=== PATIENT | female | born 1970 | race Caucasian/White ===

== ENCOUNTER → 2016-12-28 | Outpatient (CLI) | payer OTHER ==
[2016-12-28 10:11] LABS: Basophils # (A) 0.1 k/uL (0-0.2); Basophils % (A) 2 %; CH 29.5; Eosinophils # (A) 0.4 k/uL (0-0.7); Eosinophils % (A) 4 %; HCT 44.2 % (34.0-46.0); HGB 13.9 gm/dL (11.4-16.0); Luc % (Auto) 3; Lymphocytes # (A) 1.9 k/uL (1.0-4.8); Lymphocytes % (A) 21 %; MCH 29.1 pg (25.0-35.0); MCHC 31.5 g/dL (31.0-37.0); MCV 92.4 fL (80.0-100.0); Mean Platelet Volume 8.2; Monocytes # (A) 0.5 k/uL (0-1.0); Monocytes % (A) 5 %; Neutrophils # (A) 6.1 k/uL (1.3-7.7); Neutrophils % (A) 65 %; RBC 4.78 m/uL (3.80-5.40); RDW 13.9 % (11.5-15.5); WBC 9.4 k/uL (3.8-10.6); WBC (Perox) 9.69
[2016-12-28 10:24] LABS: ALT 25 U/L (9-52); AST 21 U/L (14-36); Alkaline Phosphatase 65 U/L (38-126); Anion Gap 14 mmol/L; Blood Urea Nitrogen 21 mg/dL (7-17); Calcium 9.2 mg/dL (8.4-10.2); Carbon Dioxide 21 mmol/L (22-30); Chloride 105 mmol/L (98-107); Cholesterol 209 mg/dL (<200); Glucose 115 mg/dL (74-99); HDL Cholesterol 56 mg/dL (40-60); Non-African American GFR(MDRD) >60 (>60 ml/min/1.73 sqM); Potassium 4.9 mmol/L (3.5-5.1); Sodium 140 mmol/L (137-145); Total Bilirubin 0.7 mg/dL (0.2-1.3); Triglycerides 179 mg/dL (<150)
[2016-12-28 13:38] LABS: Hemoglobin A1C 6.9 % (4.2-6.1)
== END ==
LOC: LABWHC1 08:57
PROVIDERS: ATTEND Family Medicine
DX: E11.9 Type 2 diabetes mellitus without complications (principal)
CPT/HCPCS: 36415; 80053; 80061; 83036; 85025

== ENCOUNTER → 2017-01-03 | Outpatient (CLI) | payer OTHER ==
--- NOTE | 2017-01-03 10:03 | CT ---
EXAMINATION TYPE: CT abdomen pelvis wo con DATE OF EXAM: 01/03/2017 8:57 AM HISTORY: Kidney Stone per order. History of right-sided lithotripsy per patient. CT DLP: 4267.40 mGycm. Automated Exposure Control for Dose Reduction was Utilized. TECHNIQUE: CT scan of the abdomen and pelvis is performed without oral or IV contrast. COMPARISON: CT abdomen pelvis May 30, 2015 FINDINGS: Within the limitations of a non-contrast study, the following observations are made. LUNG BASES: No significant abnormality is appreciated. LIVER/GB: Liver remains heterogeneously hypodense consistent with diffuse fatty infiltration. Cholecy stectomy clips are redemonstrated. PANCREAS: No significant abnormality is seen. SPLEEN: No significant abnormality is seen. ADRENALS: No significant abnormality is seen. KIDNEYS: No definite left-sided nephrolithiasis. There is single 3 mm calculus in right kidney on axi al image 44 identified on current study. There are additional punctate 1 mm foci suspicious for 1 to 3 additional tiny calculi scattered throughout the right kidney. Calcific burden is improved from josafat or exam. No hydronephrosis is clearly seen bilaterally. Punctate 1 to 2 mm densities in the right pelvis on axial image 84 and 87 are stable, favor phlebolit hs given interval stability though they are along the course of the distal right ureter so nonobstruc ting calculi are not entirely excluded. There is right-sided upper pelvic phlebolith on axial image 7 2 redemonstrated felt stable. There are additional left-sided pelvic phleboliths noted. No intralumin al calculi in the bladder are seen. BOWEL: There are some scattered diverticula throughout the colon most pronounced at sigmoid colon lev el. No acute diverticulitis is evident. There is no suspicious small or large bowel dilatation presen t. GENITAL ORGANS: Uterus is surgically absent or markedly atrophic in appearance. Remnant left ovary on axial image 80 is not suspiciously enlarged. Remnant right ovary is likely present near axial image 82 along course of distal right ovarian vein. LYMPH NODES: No greater than 1cm abdominal or pelvic lymph nodes are appreciated. OSSEOUS STRUCTURES: Multilevel facet arthropathy lower lumbar spine is redemonstrated. OTHER: There is stable moderate size fat umbilical hernia. IMPRESSION: 1. Interval improvement in right renal calcific burden. No hydronephrosis is evident currently. There are 2 punctate densities in the right pelvis measuring 1 to 2 mm in size that are stable from prior exam favoring pelvic phleboliths, small residual distal ureter calculi are not entirely excluded as t hey appear to be along the course of the distal right ureter. Note is made there was retrograde urogr am performed June 09, 2015, would correlate with this procedure note as there is no significant int erval change in appearance suggesting they are more likely phleboliths.
== END | disposition home or self-care (01) ==
LOC: RADCTMAIN 07:34
PROVIDERS: ATTEND Family Medicine
DX: N28.89 Other specified disorders of kidney and ureter (principal)
CPT/HCPCS: 74176

== ENCOUNTER → 2017-11-24 | Outpatient (CLI) | payer MEDICAID, OTHER ==
[2017-11-24 08:00] LABS: Basophils # (A) 0.1 k/uL (0-0.2); Basophils % (A) 1 %; Eosinophils # (A) 0.3 k/uL (0-0.7); Eosinophils % (A) 4 %; HCT 42.5 % (34.0-46.0); HGB 13.4 gm/dL (11.4-16.0); Lymphocytes # (A) 2.3 k/uL (1.0-4.8); Lymphocytes % (A) 24 %; MCH 28.6 pg (25.0-35.0); MCHC 31.6 g/dL (31.0-37.0); MCV 90.5 fL (80.0-100.0); Mean Platelet Volume 7.6; Monocytes # (A) 0.6 k/uL (0-1.0); Monocytes % (A) 6 %; Neutrophils # (A) 5.9 k/uL (1.3-7.7); Neutrophils % (A) 63 %; Platelet Count 320 k/uL (150-450); RBC 4.69 m/uL (3.80-5.40); RDW 12.9 % (11.5-15.5); WBC 9.3 k/uL (3.8-10.6)
[2017-11-24 10:44] LABS: Iron Saturation 22.76 (12.00-45.00)
[2017-11-24 11:02] LABS: ALT 41 U/L (9-52); AST 27 U/L (14-36); Alkaline Phosphatase 93 U/L (38-126); Anion Gap 12 mmol/L; Blood Urea Nitrogen 17 mg/dL (7-17); Calcium 9.5 mg/dL (8.4-10.2); Carbon Dioxide 29 mmol/L (22-30); Chloride 96 mmol/L (98-107); Glucose 393 mg/dL (74-99); Potassium 4.4 mmol/L (3.5-5.1); Sodium 137 mmol/L (137-145); Total Bilirubin 0.4 mg/dL (0.2-1.3); Total Protein 7.7 g/dL (6.3-8.2)
[2017-11-24 11:14] LABS: Albumin 3.9 g/dL (3.5-5.0)
[2017-11-24 11:19] LABS: T4, Free (Free Thyroxine) 1.26 ng/dL (0.78-2.19)
[2017-11-24 13:42] LABS: Hemoglobin A1C 11.4 % (4.0-6.0)
== END | disposition home or self-care (01) ==
LOC: LABWHC1 07:14
PROVIDERS: ATTEND Family Medicine
DX: E03.9 Hypothyroidism, unspecified (principal); E11.9 Type 2 diabetes mellitus without complications
CPT/HCPCS: 36415; 80053; 82728; 83036; 83540; 83550; 84439; 84443; 84481; 85025

== ENCOUNTER 2018-01-19 22:24 | Emergency (ER) | payer MEDICAID ==
[2018-01-19 22:47] VITALS: RESP 18
[2018-01-19] MEDS ORDERED: MORPHINE SULFATE 4MG/4ML SYRG IV STA (23:04)
[2018-01-19] MEDS ORDERED: FAMOTIDINE 20 MG TAB PO STA (23:06)
[2018-01-19] MEDS ORDERED: methylPREDNISolone SOD SUCCI 125 MG/2 ML VIAL IM ONE (23:06)
[2018-01-19] MEDS ORDERED: diphenhydrAMINE 50 MG CAP PO STA (23:07)
--- NOTE | 2018-01-19 23:08 | ED ---
Skin/Abscess/FB HPI - General Chief complaint: Skin/Abscess/Foreign Body Stated complaint: RASH Time Seen by Provider: 01/19/18 22:53 Source: patient Mode of arrival: ambulatory Limitations: no limitations - History of Present Illness Initial comments: 47 years old female complaining about ALLERGIC reaction she said she does have a high blood pressure and she does take the blood pressure medications but blood pressure is high because of the itching she had a urinary tract infection recently her primary care has changed some of her medication back and forth she believes she had some new medications but she don't know exactly which one is causing the ALLERGIC reaction she got hives all over the place is the upper extremity noticed lower extremity requiring some back in the anterior chest she denies any fever no chills she is quite itchy and she is saying it is causing her to be anxious no chest pain or shortness of breath no abdominal pain no frequency urgency dysuria - Related Data Home Medications Medication Instructions Recorded Confirmed Ergocalciferol [Vitamin D2 50,000 unit PO DAILY 05/30/15 07/06/16 (DRISDOL)] amLODIPine BESYLATE [Norvasc] 10 mg PO QAM 05/30/15 07/06/16 Atenolol [Tenormin] 10 mg PO DAILY@1000 01/12/16 07/06/16 Levothyroxine Sodium [Levoxyl] 600 mcg PO DAILY 01/13/16 07/06/16 Previous Rx's Medication Instructions Recorded Zinc Gluconate [Zinc] 50 mg PO DAILY@1200 #60 tablet 07/28/16 Fluconazole [Diflucan] 150 mg PO Q72H #3 tab 01/20/18 Ranitidine HCl [Zantac] 300 mg PO HS #10 tab 01/20/18 predniSONE 50 mg PO DAILY #5 tablet 01/20/18 Allergies Allergy/AdvReac Type Severity Reaction Status Date / Time Influenza Virus Vaccines Allergy Dyspnea Verified 07/06/16 16:10 Iodinated Contrast- Oral and Allergy Swelling Verified 07/06/16 16:10 IV Dye [Iodinated Contrast Media - IV Dye] Review of Systems ROS Statement: Those systems with pertinent positive or pertinent negative responses have been documented in the HPI. ROS Other: All systems not noted in ROS Statement are negative. Past Medical History Past Medical History: Cancer, GERD/Reflux, Hypertension, Osteoarthritis (OA), Pneumonia, Rheumatoid Arthritis (RA), Thyroid Disorder Additional Past Medical History / Comment(s): bilateral RENAL CALCULI, urinary tract calculi, fungal lung infection recently getting better due to mold in home , bronchitis and pneumonia's which pt state are also due to mold in her home- she just recently moved, respiratory failure which pt states is due to aspiration with surgery, thyroid cancer with L lobe removed, uterine cancer with hysterectomy, fibromyalgia, chronic backpain, hypothryroidism, varicose veins bilaterally, UTIs, vitamin D deficiency, hemorrhoids, sinusitis, duodenal polyps, anemia, gestational diabetes, pt states she is to have a right thyroid bx on Sunday January 17, 2016, [place] due to shingles History of Any Multi-Drug Resistant Organisms: C-DIFF Date of last positivie culture/infection: 2006 per pt MDRO Source:: stool Past Surgical History: Bariatric Surgery, Cholecystectomy, Hysterectomy, Tubal Ligation Additional Past Surgical History / Comment(s): 06/09/15 ATTEMPTED TO REMOVE A RT RENAL CALCULI. Multiple uterine biopsies, L side thyroid bx, Left side thyroid removed 2009, , lap banding with lap band removed and gastric mesh then gastric sleeve, ESWLs and some kidney stones surgically removed-basketing, ureteroscopy, cystoscopies with stents, colonoscopy, EGD, D&C. Past Anesthesia/Blood Transfusion Reactions: No Reported Reaction Additional Past Anesthesia/Blood Transfusion Reaction / Comment(s): Hx of aspiration with intubated. Past Psychological History: Anxiety Smoking Status: Never smoker Past Alcohol Use History: None Reported Past Drug Use History: None Reported - Past Family History Father History Unknown: Yes Family Medical History: Cancer Additional Family Medical History / Comment(s): COLON/STOMAH/ESOPHAGEL CANCER- of at age 63 yrs. Mother Family Medical History: Asthma, CVA/TIA Additional Family Medical History / Comment(s): HEART PROBLEMS, CVA General Exam - General Exam Comments Initial Comments: General: The patient is awake ,, she is in a moderate distress because of the excoriation and widespread hives Skin: Skin is erythematous and looks like it she has a fungal infection candidiasis and a large area in her pelvis, this is a skin has small hives more so on the right and the left upper extremity Eye: Pupils are equal, round and reactive to light, extra-ocular movements are intact; there is normal conjunctiva bilaterally. Ears, nose, mouth and throat: There are moist mucous membranes and no oral lesions. Neck: The neck is supple, there is no tenderness or JVD. Cardiovascular: There is a regular rate and rhythm. No murmur, rub or gallop is appreciated. Respiratory: To auscultation bilateral, no wheezing no rhonchi no distress respiratory geiger noticed Gastrointestinal: Soft, non-distended, non-tender abdomen without masses or organomegaly noted. There is no rebound or guarding present. Bowel sounds are unremarkable. Back: There is no tenderness to palpation in the midline. There is no obvious deformity. Musculoskeletal: Normal ROM, no tenderness, There is no pedal edema. There is no calf tenderness or swelling. No cords were appreciated. Neurological: CN II-XII intact, Cranial nerves III through XII are intact. There are no obvious motor or sensory deficits. Coordination appears grossly intact. Speech is normal. Psychiatric: Cooperative, appropriate mood & affect, normal judgment. Limitations: no limitations Course Vital Signs 01/19/18 01/19/18 01/20/18 22:41 23:33 00:06 Temperature 98.5 F 97.8 F Pulse Rate 124 H 121 H 98 Respiratory 18 18 18 Rate Blood Pressure 188/118 157/94 159/83 O2 Sat by Pulse 96 96 94 L Oximetry - Reevaluation(s) Reevaluation #1: Patient is reassessed at term 12 9, blood pressures better pulse rate is better she had morphine for the pain she had the Benadryl 50 mg by mouth Solu-Medrol 125 mg intramuscular and she also had Pepcid 40 mg for Macy DNA C is a discussed with the pharmacist she recommended Diflucan 150 mg to 72 hours 3 she be gone home with 50 mg of prednisone daily for next 5 days Zantac and Claritin 01/20/18 00:09 Medical Decision Making - Lab Data Lab Results 01/19/18 Range/Units 23:17 Urine Color Colorless Urine Appearance Clear (Clear) Urine pH 5.5 (5.0-8.0) Ur Specific [place] 1.021 (1.001-1.035) Urine Protein Negative (Negative) Urine Glucose (UA) 4+ H (Negative) Urine Ketones Negative (Negative) Urine Blood Negative (Negative) Urine Nitrite Negative (Negative) Urine Bilirubin Negative (Negative) Urine Urobilinogen <2.0 (<2.0) mg/dL Ur Leukocyte Esterase Moderate H (Negative) Urine RBC 9 H (0-5) /hpf Urine WBC 49 H (0-5) /hpf Ur Squamous Epith Cells <1 (0-4) /hpf Urine Bacteria Rare H (None) /hpf Disposition Clinical Impression: Allergic reaction, Candidiasis, Cystitis Disposition: HOME SELF-CARE Condition: Good Prescriptions: Fluconazole [Diflucan] 150 mg PO Q72H #3 tab predniSONE 50 mg PO DAILY #5 tablet Ranitidine HCl [Zantac] 300 mg PO HS #10 tab Referrals: Augustine Ballesteros MD [Primary Care Provider] - 1-2 days
[2018-01-19 23:44] LABS: Appearance,Urine Clear (Clear); Bacteria,Urine Rare /hpf; Bilirubin,Urine Negative (Negative); Blood,Urine Negative (Negative); Color,Urine Colorless; Glucose,Urine (UA) 4+ (Negative); Ketones,Urine Negative (Negative); Leukocyte Esterase,Urine Moderate (Negative); Nitrite,Urine Negative (Negative); PH, Urine 5.5 (5.0-8.0); Protein,Urine Negative (Negative); RBC,Urine 9 /hpf (0-5); Specific Gravity,Urine 1.021 (1.001-1.035); Squamous Epithelial Cell,Urine <1 /hpf (0-4); Urobilinogen,Urine <2.0 mg/dL (<2.0); WBC,Urine 49 /hpf (0-5)
[2018-01-20 00:07] VITALS: BP 159/83; PULSE 98; TEMP 97.8
== END 2018-01-20 00:18 | disposition home or self-care (01) ==
LOC: EC 22:24
DX: T78.40XA Allergy, unspecified, initial encounter (principal); B37.41 Candidal cystitis and urethritis; I10 Essential (primary) hypertension; E03.9 Hypothyroidism, unspecified; Z85.850 Personal history of malignant neoplasm of thyroid; Z85.42 Personal history of malignant neoplasm of other parts of uterus; Z79.899 Other long term (current) drug therapy; Z88.7 Allergy status to serum and vaccine; Z91.041 Radiographic dye allergy status; Z53.29 Procedure and treatment not carried out because of patient's decision for other reasons
CPT/HCPCS: 81001; 87086; 87077; 87186; 99283; 96372; J2930

== ENCOUNTER → 2018-02-14 | Outpatient (CLI) | payer MEDICAID ==
[2018-02-14 09:04] LABS: ALT 38 U/L (9-52); AST 27 U/L (14-36); Albumin 3.3 g/dL (3.5-5.0); Alkaline Phosphatase 85 U/L (38-126); Anion Gap 10 mmol/L; Blood Urea Nitrogen 15 mg/dL (7-17); Carbon Dioxide 26 mmol/L (22-30); Chloride 103 mmol/L (98-107); Glucose 165 mg/dL (74-99); Potassium 4.3 mmol/L (3.5-5.1); Sodium 139 mmol/L (137-145); Total Bilirubin 0.5 mg/dL (0.2-1.3); Total Protein 6.4 g/dL (6.3-8.2)
[2018-02-14 09:09] LABS: T4, Free (Free Thyroxine) 1.96 ng/dL (0.78-2.19)
[2018-02-14 15:06] LABS: Hemoglobin A1C 14.9 % (4.0-6.0)
== END | disposition home or self-care (01) ==
LOC: LABWHC1 07:25
PROVIDERS: ATTEND Internal Medicine Endocrinology, Diabetes & Metabolism
DX: E11.65 Type 2 diabetes mellitus with hyperglycemia (principal); I10 Essential (primary) hypertension; E66.9 Obesity, unspecified; E55.9 Vitamin D deficiency, unspecified; E89.0 Postprocedural hypothyroidism; E04.2 Nontoxic multinodular goiter; Z71.3 Dietary counseling and surveillance
CPT/HCPCS: 36415; 80053; 82306; 83036; 84439; 84443

== ENCOUNTER → 2018-03-14 | Outpatient (CLI) | payer MEDICAID ==
[2018-03-14 08:08] LABS: Appearance,Urine Cloudy (Clear); Bacteria,Urine Many /hpf; Bilirubin,Urine Negative (Negative); Blood,Urine Moderate (Negative); Color,Urine Yellow; Glucose,Urine (UA) Negative (Negative); Ketones,Urine Negative (Negative); Leukocyte Esterase,Urine Moderate (Negative); Nitrite,Urine Negative (Negative); PH, Urine 5.5 (5.0-8.0); Protein,Urine Negative (Negative); RBC,Urine >182 /hpf (0-5); Specific Gravity,Urine 1.014 (1.001-1.035); Squamous Epithelial Cell,Urine 2 /hpf (0-4); Urobilinogen,Urine <2.0 mg/dL (<2.0); WBC,Urine 33 /hpf (0-5)
== END | disposition home or self-care (01) ==
LOC: LABWHC1 07:15
PROVIDERS: ATTEND Internal Medicine Endocrinology, Diabetes & Metabolism
DX: R30.0 Dysuria (principal); E66.9 Obesity, unspecified; E11.65 Type 2 diabetes mellitus with hyperglycemia; R31.9 Hematuria, unspecified
CPT/HCPCS: 36415; 81001; 82024; 82533; 87077; 87086; 87186

== ENCOUNTER 2018-03-20 18:29 | Inpatient (IN) | payer MEDICAID ==
[2018-03-20] MEDS ORDERED: SODIUM CHLORIDE 0.9% 1,000 ML IV ONE (19:03)
[2018-03-20] MEDS ORDERED: KETOROLAC 30 MG/ML 1 ML VIAL IVP STA (19:04)
[2018-03-20] MEDS ORDERED: ONDANSETRON 4 MG/2 ML VIAL IVP STA (19:04)
--- NOTE | 2018-03-20 19:07 | ED ---
Female Urogenital HPI <Tyler Cavazos - Last Filed: 03/20/18 20:45> - General Source: patient Mode of arrival: wheelchair Limitations: no limitations <Stella Medel - Last Filed: 03/20/18 21:02> - General Chief complaint: Urogenital Stated complaint: KIDNEY PROBLEM Time Seen by Provider: 03/20/18 18:51 - History of Present Illness Initial comments: 47-year-old female patient presents to the emergency department today for evaluation of recurring urinary tract infection. The patient states that she has been dealing with urinary tract infection since August. States that since November she has been on 5 courses of antibiotics to attempt to cure this. Patient states that she is symptom-free for a short time and then her symptoms returned. She states that she is currently expressing hematuria, dysuria, urinary frequency and right flank pain. Patient states she has been nauseated. States that she has been having temperatures as high as 101F. Patient states that she has had multiple culture showing E. coli as a cause of her infection. States she has been on Macrobid multiple times. States that her airdox fitter Dr. Bonilla recently put her on Levaquin which she has been taking. Patient has a history of kidney stones with kidney stenting. Patient denies any recent rash, shortness breath, chest pain, constipation, numbness, tingling, dizziness, weakness, headache, visual changes, or any other complaints. (Stella Medel) - Related Data Home Medications Medication Instructions Recorded Confirmed Ergocalciferol [Vitamin D2 50,000 unit PO MOTUWETH 05/30/15 03/20/18 (DRISDOL)] Acetaminophen [Tylenol Extra 1,500 mg PO Q6HR PRN 03/20/18 03/20/18 Strength] Atenolol [Tenormin] 50 mg PO DAILY 03/20/18 03/20/18 Insulin Glargine/Lixisenatide 20 units SQ DAILY 03/20/18 03/20/18 [Soliqua 100 Unit-33 Mcg/ml Pen] Levothyroxine Sodium [Synthroid] 100 mcg PO HS 03/20/18 03/20/18 Levothyroxine Sodium [Synthroid] 600 mcg PO QAM 03/20/18 03/20/18 Lisinopril [Zestril] 10 mg PO DAILY 03/20/18 03/20/18 lamoTRIgine [LaMICtal] 500 mg PO DAILY 03/20/18 03/20/18 metFORMIN HCL 1,000 mg PO BID 03/20/18 03/20/18 traMADol HCl [Ultram] 50 mg PO Q6HR PRN 03/20/18 03/20/18 Allergies Allergy/AdvReac Type Severity Reaction Status Date / Time Influenza Virus Vaccines Allergy Dyspnea Verified 03/20/18 19:48 Iodinated Contrast- Oral and Allergy Swelling Verified 03/20/18 19:48 IV Dye [Iodinated Contrast Media - IV Dye] Review of Systems ROS Other: All systems not noted in ROS Statement are negative. <Tyler Cavazos - Last Filed: 03/20/18 20:45> ROS Other: All systems not noted in ROS Statement are negative. <Stella Medel - Last Filed: 03/20/18 21:02> ROS Statement: Those systems with pertinent positive or pertinent negative responses have been documented in the HPI. Past Medical History Past Medical History: Cancer, GERD/Reflux, Hypertension, Osteoarthritis (OA), Pneumonia, Rheumatoid Arthritis (RA), Thyroid Disorder Additional Past Medical History / Comment(s): bilateral RENAL CALCULI, urinary tract calculi, fungal lung infection recently getting better due to mold in home , bronchitis and pneumonia's which pt state are also due to mold in her home- she just recently moved, respiratory failure which pt states is due to aspiration with surgery, thyroid cancer with L lobe removed, uterine cancer with hysterectomy, fibromyalgia, chronic backpain, hypothryroidism, varicose veins bilaterally, UTIs, vitamin D deficiency, hemorrhoids, sinusitis, duodenal polyps, anemia, gestational diabetes, pt states she is to have a right thyroid bx on Sunday January 17, 2016, [place] due to shingles History of Any Multi-Drug Resistant Organisms: C-DIFF Date of last positivie culture/infection: 2006 per pt MDRO Source:: stool Past Surgical History: Bariatric Surgery, Cholecystectomy, Hysterectomy, Tubal Ligation Additional Past Surgical History / Comment(s): 06/09/15 ATTEMPTED TO REMOVE A RT RENAL CALCULI. Multiple uterine biopsies, L side thyroid bx, Left side thyroid removed 2009, , lap banding with lap band removed and gastric mesh then gastric sleeve, ESWLs and some kidney stones surgically removed-basketing, ureteroscopy, cystoscopies with stents, colonoscopy, EGD, D&C. Past Anesthesia/Blood Transfusion Reactions: No Reported Reaction Additional Past Anesthesia/Blood Transfusion Reaction / Comment(s): Hx of aspiration with intubated. Past Psychological History: Anxiety Smoking Status: Never smoker Past Alcohol Use History: None Reported Past Drug Use History: None Reported - Past Family History Father History Unknown: Yes Family Medical History: Cancer Additional Family Medical History / Comment(s): COLON/STOMAH/ESOPHAGEL CANCER- of at age 63 yrs. Mother Family Medical History: Asthma, CVA/TIA Additional Family Medical History / Comment(s): HEART PROBLEMS, CVA <Stella Medel - Last Filed: 03/20/18 21:02> General Exam Limitations: no limitations General appearance: alert, in no apparent distress, other (Physical well- developed, obese adult female patient in no acute distress. Vital signs upon presentation are temperature 98.1F, pulse 112, respirations 18, blood pressure 146/88, pulse ox 96% on room air.) Eye exam: Present: normal appearance, PERRL, EOMI. Absent: scleral icterus, conjunctival injection, periorbital swelling ENT exam: Present: normal exam, normal oropharynx, mucous membranes moist Respiratory exam: Present: normal lung sounds bilaterally. Absent: respiratory distress, wheezes, rales, rhonchi, stridor Cardiovascular Exam: Present: regular rate, normal rhythm, normal heart sounds. Absent: systolic murmur, diastolic murmur, rubs, gallop, clicks GI/Abdominal exam: Present: soft, normal bowel sounds. Absent: distended, tenderness, guarding, rebound, rigid Back exam: Present: normal inspection, CVA tenderness (R). Absent: CVA tenderness (L) Neurological exam: Present: alert, oriented X3, CN II-XII intact Psychiatric exam: Present: normal affect, normal mood Skin exam: Present: warm, dry, intact, normal color. Absent: rash <Stella Medel - Last Filed: 03/20/18 21:02> Course <Tyler Cavazos - Last Filed: 03/20/18 20:45> <Stella Medel - Last Filed: 03/20/18 21:02> Vital Signs 03/20/18 03/20/18 18:45 20:24 Temperature 98.1 F 98.2 F Pulse Rate 112 H 100 Respiratory 18 18 Rate Blood Pressure 146/88 167/82 O2 Sat by Pulse 96 95 Oximetry - Reevaluation(s) Reevaluation #1: 03/20/18 20:42 And P supervision I did personally do a [id number] evaluation the patient did discuss findings with her and her . Patient will be admitted for UTI failed outpatient treatment. (Tyler Cavazos) Reevaluation #2: 03/20/18 20:45 Dr. Fenton's group is covering Dr. Favian webber. (Tyler Cavazos) Medical Decision Making - Lab Data Result diagrams: 03/20/18 19:30 03/20/18 19:30 <Tyler Cavazos - Last Filed: 03/20/18 20:45> - Lab Data Result diagrams: 03/20/18 19:30 03/20/18 19:30 - Radiology Data Radiology results: report reviewed, image reviewed <Stella Medel - Last Filed: 03/20/18 21:02> - Medical Decision Making 47-year-old female patient presented to the emergency department today for evaluation of free current urinary tract infection. Patient is also complaining of right flank pain, nausea, and general malaise. States she has had fevers up to 101F. Labs reviewed and showed a white blood cell count of 11.5, glucose 280, plasma lactic acid was 2.3. Urinalysis showed a cloudy appearance with trace protein, large blood, positive nitrite, large leukocyte esterase, greater than 182 red blood cells, 138 white blood cells, few white blood cell clumps, many bacteria. Given patient's history of kidney stones, severe right flank pain. Did perform CT of the abdomen and pelvis without contrast, no abnormalities were noted. Patient be started on Rocephin. She was given IV fluids for elevated plasma lactic acid. Since patient has failed outpatient treatment with multiple courses of Macrobid and her current course of Levaquin and will admit to the hospital with IV Rocephin. Will consult Dr. Main as well. (Stella Medel) - Lab Data Lab Results 03/20/18 03/20/18 03/20/18 Range/Units 19:17 19:30 19:30 WBC 11.5 H (3.8-10.6) k/uL RBC 4.63 (3.80-5.40) m/uL Hgb 13.6 (11.4-16.0) gm/dL Hct 40.7 (34.0-46.0) % MCV 87.9 (80.0-100.0) fL MCH 29.5 (25.0-35.0) pg MCHC 33.5 (31.0-37.0) g/dL RDW 14.2 (11.5-15.5) % Plt Count 259 (150-450) k/uL Neutrophils % 72 % Lymphocytes % 19 % Monocytes % 3 % Eosinophils % 4 % Basophils % 1 % Neutrophils # 8.3 H (1.3-7.7) k/uL Lymphocytes # 2.2 (1.0-4.8) k/uL Monocytes # 0.4 (0-1.0) k/uL Eosinophils # 0.5 (0-0.7) k/uL Basophils # 0.1 (0-0.2) k/uL Sodium 140 (137-145) mmol/L Potassium 3.9 (3.5-5.1) mmol/L Chloride 102 (98-107) mmol/L Carbon Dioxide 23 (22-30) mmol/L Anion Gap 15 mmol/L BUN 20 H (7-17) mg/dL Creatinine 0.90 (0.52-1.04) mg/dL Est GFR (CKD-EPI)AfAm 88 (>60 ml/min/1.73 sqM) Est GFR (CKD-EPI)NonAf 76 (>60 ml/min/1.73 sqM) Glucose 280 H (74-99) mg/dL Plasma Lactic Acid Nathan (0.7-2.0) mmol/L Calcium 9.3 (8.4-10.2) mg/dL Total Bilirubin 0.3 (0.2-1.3) mg/dL AST 20 (14-36) U/L ALT 32 (9-52) U/L Alkaline Phosphatase 77 (38-126) U/L Total Protein 7.0 (6.3-8.2) g/dL Albumin 3.7 (3.5-5.0) g/dL Urine Color Yellow Urine Appearance Cloudy H (Clear) Urine pH 5.5 (5.0-8.0) Ur Specific [place] 1.016 (1.001-1.035) Urine Protein Trace H (Negative) Urine Glucose (UA) Negative (Negative) Urine Ketones Negative (Negative) Urine Blood Large H (Negative) Urine Nitrite Positive H (Negative) Urine Bilirubin Negative (Negative) Urine Urobilinogen <2.0 (<2.0) mg/dL Ur Leukocyte Esterase Large H (Negative) Urine RBC >182 H (0-5) /hpf Urine WBC 138 H (0-5) /hpf Urine WBC Clumps Few H (None) /hpf Ur Squamous Epith Cells 1 (0-4) /hpf Urine Bacteria Many H (None) /hpf 03/20/18 Range/Units 19:30 WBC (3.8-10.6) k/uL RBC (3.80-5.40) m/uL Hgb (11.4-16.0) gm/dL Hct (34.0-46.0) % MCV (80.0-100.0) fL MCH (25.0-35.0) pg MCHC (31.0-37.0) g/dL RDW (11.5-15.5) % Plt Count (150-450) k/uL Neutrophils % % Lymphocytes % % Monocytes % % Eosinophils % % Basophils % % Neutrophils # (1.3-7.7) k/uL Lymphocytes # (1.0-4.8) k/uL Monocytes # (0-1.0) k/uL Eosinophils # (0-0.7) k/uL Basophils # (0-0.2) k/uL Sodium (137-145) mmol/L Potassium (3.5-5.1) mmol/L Chloride (98-107) mmol/L Carbon Dioxide (22-30) mmol/L Anion Gap mmol/L BUN (7-17) mg/dL Creatinine (0.52-1.04) mg/dL Est GFR (CKD-EPI)AfAm (>60 ml/min/1.73 sqM) Est GFR (CKD-EPI)NonAf (>60 ml/min/1.73 sqM) Glucose (74-99) mg/dL Plasma Lactic Acid Nathan 2.3 H* (0.7-2.0) mmol/L Calcium (8.4-10.2) mg/dL Total Bilirubin (0.2-1.3) mg/dL AST (14-36) U/L ALT (9-52) U/L Alkaline Phosphatase (38-126) U/L Total Protein (6.3-8.2) g/dL Albumin (3.5-5.0) g/dL Urine Color Urine Appearance (Clear) Urine pH (5.0-8.0) Ur Specific [place] (1.001-1.035) Urine Protein (Negative) Urine Glucose (UA) (Negative) Urine Ketones (Negative) Urine Blood (Negative) Urine Nitrite (Negative) Urine Bilirubin (Negative) Urine Urobilinogen (<2.0) mg/dL Ur Leukocyte Esterase (Negative) Urine RBC (0-5) /hpf Urine WBC (0-5) /hpf Urine WBC Clumps (None) /hpf Ur Squamous Epith Cells (0-4) /hpf Urine Bacteria (None) /hpf - Radiology Data CT of the abdomen and pelvis without contrast was obtained. Report was reviewed in its entirety. Impression by Dr. Hernandez shows no acute process. (Stella Medel) Disposition <Tyler Cavazos - Last Filed: 03/20/18 20:45> Decision to Admit Reason: Admit from EC Decision Date: 03/20/18 Decision Time: 21:01 <Stella Medel - Last Filed: 03/20/18 21:02> Clinical Impression: Urinary tract infection Disposition: ADMITTED IP TO THIS [facility] Condition: Serious Referrals: Augustine Ballesteros MD [Primary Care Provider] - 1-2 days
[2018-03-20 19:33] LABS: Appearance,Urine Cloudy (Clear); Bacteria,Urine Many /hpf; Bilirubin,Urine Negative (Negative); Blood,Urine Large (Negative); Color,Urine Yellow; Glucose,Urine (UA) Negative (Negative); Ketones,Urine Negative (Negative); Leukocyte Esterase,Urine Large (Negative); Nitrite,Urine Positive (Negative); PH, Urine 5.5 (5.0-8.0); Protein,Urine Trace (Negative); RBC,Urine >182 /hpf (0-5); Specific Gravity,Urine 1.016 (1.001-1.035); Squamous Epithelial Cell,Urine 1 /hpf (0-4); Urobilinogen,Urine <2.0 mg/dL (<2.0); WBC,Urine 138 /hpf (0-5)
[2018-03-20 19:37] LABS: Basophils # (A) 0.1 k/uL (0-0.2); Basophils % (A) 1 %; Eosinophils # (A) 0.5 k/uL (0-0.7); Eosinophils % (A) 4 %; HCT 40.7 % (34.0-46.0); HGB 13.6 gm/dL (11.4-16.0); Lymphocytes # (A) 2.2 k/uL (1.0-4.8); Lymphocytes % (A) 19 %; MCH 29.5 pg (25.0-35.0); MCHC 33.5 g/dL (31.0-37.0); MCV 87.9 fL (80.0-100.0); Mean Platelet Volume 6.9; Monocytes # (A) 0.4 k/uL (0-1.0); Monocytes % (A) 3 %; Neutrophils # (A) 8.3 k/uL (1.3-7.7); Neutrophils % (A) 72 %; Platelet Count 259 k/uL (150-450); RBC 4.63 m/uL (3.80-5.40); RDW 14.2 % (11.5-15.5); WBC 11.5 k/uL (3.8-10.6)
[2018-03-20 19:51] LABS: Albumin 3.7 g/dL (3.5-5.0); Calcium 9.3 mg/dL (8.4-10.2); Potassium 3.9 mmol/L (3.5-5.1); Total Bilirubin 0.3 mg/dL (0.2-1.3)
--- NOTE | 2018-03-20 20:01 | CT ---
EXAMINATION TYPE: CT abdomen pelvis wo con DATE OF EXAM: 03/20/2018 COMPARISON: 01/03/2017 HISTORY: Generalized pain with recurrent UTI. CT DLP: 3208.3 mGycm Automated exposure control for dose reduction was used. TECHNIQUE: Helical acquisition of images was performed from the lung bases through the pelvis. FINDINGS: LUNG BASES: No significant abnormality is appreciated. LIVER/GB: No significant abnormality is appreciated. PANCREAS: No significant abnormality is seen. SPLEEN: No significant abnormality is seen. ADRENALS: No significant abnormality is seen. KIDNEYS: No significant abnormality is seen. FREE AIR: No free air is visualized RETROPERITONEAL ADENOPATHY: None visualized REPRODUCTIVE ORGANS: No significant abnormality is seen URINARY BLADDER: No significant abnormality is seen. PELVIC ADENOPATHY: None visualized. OSSEOUS STRUCTURES: No significant abnormality is seen. BOWEL: No significant abnormality is seen. IMPRESSION: NO ACUTE PROCESS, CT WITHOUT CONTRAST.
[2018-03-20] MEDS ORDERED: ACETAMINOPHEN TAB 325 MG TAB PO PRN (20:55)
[2018-03-20] MEDS ORDERED: NALOXONE 0.4 MG/ML 1 ML VIAL IV PRN (20:55)
[2018-03-20] MEDS ORDERED: cefTRIAXone IN SWFI 2,000 MG/20 ML SYRINGE IVP STA (20:59)
[2018-03-20] MEDS: SODIUM CHLORIDE 0.9% 1,000 ML IV SCH (21:13)
[2018-03-20] MEDS ORDERED: traMADol 50 MG TAB PO PRN (23:22)
[2018-03-20] MEDS ORDERED: HYDROcodone/APAP 5-325MG 1 EACH TAB PO PRN (23:24)
[2018-03-20] MEDS ORDERED: TEMAZEPAM 15 MG CAP PO PRN (23:24)
[2018-03-20] MEDS ORDERED: ERGOCALCIFEROL 50,000 UNIT CAP PO SCH (23:30)
--- NOTE | 2018-03-20 23:57 | HP ---
HISTORY AND PHYSICAL DATE OF SERVICE: 03/20/2018 CHIEF COMPLAINT: Abdominal pain, UTI. HISTORY OF PRESENT ILLNESS: This 41-year-old woman with a past medical history of multiple medical problems, including GERD, hypertension, DJD, history of pneumonia, rheumatoid arthritis being followed by Dr. Augustine Ballesteros, presenting with UTI since last August, according to her. The patient had multiple episodes of UTI. Patient on Levaquin, Macrobid. Patient also was given in the ER a shot of Levaquin and Macrobid. Because of lack of improvement and pain in the right side, the patient came to [facility] and was admitted for further evaluation and treatment. The patient apparently had 5 courses of antibiotics. The patient also had a urolithiasis and was seen by Dr. Pickett from urology rehab and apparently an appointment is there for tomorrow as well. A CT scan of the abdomen was done which showed no acute abnormality. The patient also had multiple urine cultures growing most recently E. coli which are poly resistant. There is no history of rigors. The patient did complain of some fever. There is no history of any headache, loss of consciousness, seizures. PAST MEDICAL HISTORY: History of frequent UTIs, history of GERD, hypertension, history of DJD, history pneumonia, rheumatoid arthritis. MEDICATIONS PRIOR TO ADMISSION: Include: 1. Ultram 50 mg every 6 hours p.r.n. 2. Synthroid 100 mcg p.o. q.h.s. and. 3. Tylenol 1500 mg every 6 hours p.r.n. 4. Levaquin 500 mg p.o. daily. 5. Insulin glargine and. 6. Lixisenatide 20 units subcu daily. 7. Metformin 1000 mg p.o. b.i.d. 8. Zestril 10 mg p.o. daily. 9. Tenormin 50 mg p.o. daily. 10.Synthroid 60 mcg p.o. q.a.m. 11.Drisdol 50,000 monthly Sunday, Sunday, Sunday, . ALLERGIES: INFLUENZA VACCINE, IODINATED CONTRAST DYE. FAMILY HISTORY: History of colon, stomach cancer, esophageal cancer. SOCIAL HISTORY: No history of smoking. No alcohol. REVIEW OF SYSTEMS: ENT: No diminished hearing, diminished vision. CARDIOVASCULAR: No angina, palpitations. RESPIRATORY: No cough or hemoptysis. GI: As mentioned earlier. : As mentioned earlier. NERVOUS: No numbness or weakness. ALLERGY/IMMUNOLOGY: No asthma or hay fever. MUSCULOSKELETAL: As mentioned earlier. HEMATOLOGY/ONCOLOGY: No history of anemia. ENDOCRINE: Diabetes mellitus. CONSTITUTIONAL: As mentioned earlier. DERMATOLOGY: Negative. RHEUMATOLOGY: Negative. PSYCHIATRY: As mentioned earlier. PHYSICAL EXAMINATION: The patient alert and oriented x3. Pulse 80, blood pressure 117/56, respirations 16, temperature 98 degrees, pulse ox 94% on room air. HEENT: Conjunctivae normal. Oral mucosa moist. NECK: No jugular venous distention. No carotid bruits. No lymph node enlargement. CARDIOVASCULAR: S1, S2 muffled. No S3, S4. RESPIRATORY: Breath sounds diminished in the bases. No rhonchi. No crackles. ABDOMEN: Soft. Mild diffuse tenderness on the right side of the abdomen. No Guarding. No rigidity. No mass palpable. LEGS: No edema. No swelling. NERVOUS SYSTEM: Higher functions as mentioned earlier. Moves all 4 limbs. No focal motor or sensory deficits. LYMPHATIC: No lymphadenopathy in the neck or axillae. SKIN: No ulcer, rash or bleeding. LABS: WBC 11.2, hemoglobin is 13.2. Sodium 140, potassium 3.9. Plasma lactic acid 2.3. UA noted. ASSESSMENT: 1. Acute urinary tract infection with the failure of outpatient treatment. 2. History of recurrent urinary tract infections. 3. History of nephrolithiasis. 4. Diabetes mellitus type 2. 5. History of increased WBC. 6. History of gastroesophageal reflux disease. 7. Hypertension. 8. History of degenerative joint disease. 9. History of pneumonia. 10.History of rheumatoid arthritis. 11.History of renal calculi. 12.History of fungal infections. 13.History of thyroid cancer. 14.History of fibromyalgia. 15.History of vitamin D deficiency. 16.Clostridium difficile colitis. 17.History of Pelayo palsy. 18.Obesity a with body mass index of 69.1. RECOMMENDATIONS AND DISCUSSION: In this 47-year-old woman who presented with multiple complex medical issues, we will monitor the patient closely, continue the current medical management and symptomatic treatment. Otherwise at this time, I recommend broad-spectrum IV antibiotics and I would also recommend cultures. Symptomatic treatment. Monitor blood sugars closely. Infectious disease evaluation. Neurology evaluation. Guarded prognosis because of multiple complex medical issues. A copy of the dictation will be forwarded to Dr. Ballesteros, who is the primary physician. See orders for further details. MMODL / IJN: [id number] /
[2018-03-21] MEDS: KETOROLAC 30 MG/ML 1 ML VIAL IVP PRN ×2 (02:34→13:59)
[2018-03-21] MEDS: HEPARIN SODIUM,PORCINE 5,000 UNIT/ML 1 ML VIAL SQ SCH ×3 (02:35→17:53)
[2018-03-21] MEDS ORDERED: LEVOTHYROXINE 100 MCG TAB PO SCH ×2 (06:30→15:00)
[2018-03-21 07:29] LABS: Glucose,Whole Blood 156 mg/dL (75-99)
[2018-03-21] MEDS: LEVOTHYROXINE 100 MCG TAB PO SCH ×2 (07:54→20:35)
[2018-03-21] MEDS: INSULIN ASPART 100 UNIT/ML 1 ML 10 ML VIAL SQ SCH ×4 (07:56→20:35)
[2018-03-21] MEDS: PANTOPRAZOLE 40 MG TABLET PO SCH (07:57)
[2018-03-21 07:58] LABS: Basophils # (A) 0.1 k/uL (0-0.2); Basophils % (A) 1 %; Eosinophils # (A) 0.5 k/uL (0-0.7); Eosinophils % (A) 6 %; HCT 39.6 % (34.0-46.0); Lymphocytes # (A) 1.9 k/uL (1.0-4.8); Lymphocytes % (A) 23 %; MCH 29.2 pg (25.0-35.0); MCHC 32.7 g/dL (31.0-37.0); MCV 89.3 fL (80.0-100.0); Monocytes # (A) 0.3 k/uL (0-1.0); Monocytes % (A) 4 %; Neutrophils # (A) 5.2 k/uL (1.3-7.7); Neutrophils % (A) 64 %; Platelet Count 230 k/uL (150-450); RBC 4.44 m/uL (3.80-5.40); RDW 14.4 % (11.5-15.5); WBC 8.2 k/uL (3.8-10.6)
[2018-03-21] MEDS: metFORMIN 500 MG TAB PO SCH ×2 (08:01→20:36)
[2018-03-21] MEDS: LISINOPRIL 10 MG TAB PO SCH (08:01)
[2018-03-21] MEDS: ATENOLOL 50 MG TAB PO SCH (08:01)
[2018-03-21] MEDS: TERBINAFINE 250 MG TAB PO SCH (08:02)
[2018-03-21] MEDS: SODIUM CHLORIDE 0.9% 1,000 ML IV SCH ×2 (08:07→20:39)
[2018-03-21 08:12] LABS: Anion Gap 13 mmol/L; Blood Urea Nitrogen 21 mg/dL (7-17); Calcium 8.8 mg/dL (8.4-10.2); Carbon Dioxide 22 mmol/L (22-30); Chloride 106 mmol/L (98-107); Glucose 155 mg/dL (74-99); Potassium 4.1 mmol/L (3.5-5.1); Sodium 141 mmol/L (137-145)
[2018-03-21] MEDS ORDERED: LIXISENATIDE SQ SCH (09:00)
[2018-03-21] MEDS ORDERED: LEVOTHYROXINE SODIUM PO SCH (09:00)
[2018-03-21] MEDS ORDERED: INSULIN GLARGINE SQ SCH (09:00)
[2018-03-21] MEDS ORDERED: TERBINAFINE 250 MG TAB PO SCH (09:00)
[2018-03-21] MEDS ORDERED: lamoTRIgine 100 MG TAB PO SCH (09:00)
[2018-03-21 11:41] LABS: Glucose,Whole Blood 143 mg/dL (75-99)
[2018-03-21] MEDS ORDERED: ERGOCALCIFEROL 50,000 UNIT CAP PO SCH (12:00)
[2018-03-21 13:05] LABS: Hemoglobin A1C 11.5 % (4.0-6.0)
[2018-03-21 14:44] VITALS: BMI 69.0
--- NOTE | 2018-03-21 15:20 | PN ---
PROGRESS NOTE DATE OF SERVICE: 03/21/2018 This 47-year-old woman with a past medical history of multiple medical problems was admitted with acute UTI with failure of outpatient treatment. The patient also had history of urolithiasis. The patient had E coli grown from the cultures on multiple occasions. The patient started on empiric antibiotics. No chest pain. No palpitations. No fever. Patient also had uncontrolled diabetes mellitus with a hemoglobin A1c also. EXAM: Alert and oriented x3. Pulse 97, blood pressure 130/82, respirations 16, temperature 98 degrees, pulse ox 95% on room air. HEENT: Conjunctivae normal. NECK: No jugular venous distention. CARDIOVASCULAR: S1, S2. RESPIRATORY: Breath sounds diminished in the bases. A few rhonchi, no crackles. ABDOMEN: Soft, nontender. No mass palpable. LEGS: No edema. No focal deficits. LAB DATA: CBC within normal limits. Glucose 156. ASSESSMENT: 1. Acute urinary tract infection with failure of outpatient treatment. 2. History of recurrent urinary tract infections. 3. History of nephrolithiasis. 4. Diabetes type 2, uncontrolled with hypoglycemia, possibly with high hemoglobin A1c of 11. 5. History of increased WBC. 6. History of gastroesophageal reflux disease. 7. Hypertension. 8. History of degenerative joint disease. 9. History of pneumonia. 10.History of rheumatoid arthritis. 11.History of renal calculi. 12.History of fungal infection. 13.History of thyroid cancer. 14.History of fibromyalgia. 15.Vitamin D deficiency. 16.History of C difficile colitis. 17.History of Pelayo's palsy. 18.Obesity with body mass index 16.1. RECOMMENDATIONS AND DISCUSSION: I recommend to continue current management and symptomatic treatment. Continue current IV antibiotics. Await Urology and Infectious Disease evaluation. Follow the cultures. Guarded prognosis. Further recommendations to follow. MMODL / IJN: [id number] /
[2018-03-21] MEDS: [UNRECOGNIZED DRUG - OTHER] SQ SCH (17:41)
[2018-03-21 17:55] LABS: Glucose,Whole Blood 150 mg/dL (75-99)
[2018-03-21 20:15] LABS: Glucose,Whole Blood 163 mg/dL (75-99)
--- NOTE | 2018-03-21 20:32 | P.GSCN ---
History of Present Illness Consult date: 03/21/18 Reason for Consult: Recurrent urinary tract infections and urolithiasis History of present illness: The patient is a 47-year-old female with moribund obesity and poorly controlled diabetes mellitus admitted through the emergency room apparently for treatment of recurrent urinary tract infections which have failed outpatient treatment. The patient had a urine culture on 03/14/2018 that grew Escherichia coli which was resistant to sulfa, Cipro and ampicillin and had intermediate sensitivities to Levaquin and Unasyn. She was sensitive to a variety of other oral and IV antibiotics. E coli with identical sensitivities were noted on cultures done on 11/28/2017 and on 01/19/2018. She says she's been treated for urinary tract infections 4-5 times over the last 6 months with Levaquin and Macrobid. She says that when she has taken Macrobid her symptoms will improve but then will relapse 6-7 days later. She complains of right abdominal pain and pink tinged urine when she has infections. She was not febrile at the time of admission but did have a white blood count of 11,500 with a lactic acid of 2.3. She was started on ceftriaxone and this morning her white blood count is 8200. CT scan of the abdomen and pelvis was obtained and showed no evidence of urolithiasis or hydronephrosis. The patient has a history of urolithiasis and had previously seen Dr. Pickett. She last underwent right ureteroscopy with lithotripsy for calculi in the right kidney after it was impossible to place a percutaneous nephrostomy tube due to her obesity. She had previously undergone a successful left percutaneous nephrostolithotomy in 2011 and prior to that bilateral ureteroscopy with lithotripsy. The stones in the past were composed of calcium carbonate. The patient says she usually voids every 30-60 minutes during the day and at least 6 times at night. She attributes this to drinking at least 3-4 quarts of water daily. She says she usually voids large amounts which she estimates that at least 15 or 16 ounces. She has intermittent urge and stress incontinence which has been treated with diapers. She denies any fecal incontinence. She has poorly controlled diabetes mellitus and had a glucose of 280 at the time of admission. Her hemoglobin A1c was 11.5. Review of Systems All systems: negative (that noted in the history of present illness.) Past Medical History Past Medical History: Cancer, GERD/Reflux, Hypertension, Osteoarthritis (OA), Pneumonia, Rheumatoid Arthritis (RA), Thyroid Disorder Additional Past Medical History / Comment(s): bilateral RENAL CALCULI, urinary tract calculi, fungal lung infection getting better(pt stated she was told it could take 7 years to fully clear)it was due to mold in home. bronchitis and pneumonia's which pt state are also due to mold in her home-she since has moved , respiratory failure which pt states is due to aspiration with surgery, thyroid cancer with L lobe removed, oaviran(not sure which one was remove) uterine cancer with hysterectomy sx and oral chemo, fibromyalgia, chronic backpain, hypothryroidism, varicose veins bilaterally, UTIs,c-diff 2006, vitamin D deficiency, hemorrhoids, sinusitis, duodenal polyps, anemia-past iron infusion and blood transfusion, gestational diabetes, past [place] due to shingles- affected rt side of face.(pt stated she has reoccuring bells palsy- when she is under stress but symptoms clear when no longer stressed)) History of Any Multi-Drug Resistant Organisms: C-DIFF Year Discovered:: 2006 per pt MDRO Source:: stool Past Surgical History: Ablation, Bariatric Surgery, Cholecystectomy, Hysterectomy, Tonsillectomy, Tubal Ligation Additional Past Surgical History / Comment(s): Multiple uterine biopsies, L side thyroid bx, Left side thyroid removed 2009, , lap banding with lap band removed and gastric mesh then gastric sleeve, ESWLs and some kidney stones surgically removed-basketing, ureteroscopy, cystoscopies with stents, colonoscopy, EGD, uterus and one ovary removed, Past Anesthesia/Blood Transfusion Reactions: No Reported Reaction Additional Past Anesthesia/Blood Transfusion Reaction / Comm: Hx of aspiration with intubated. Smoking Status: Never smoker - Past Family History Father History Unknown: Yes Family Medical History: Cancer Additional Family Medical History / Comment(s): COLON/STOMACH CANCER- of at age 63 yrs. FATHER MOM HAD ESOPHAGEAL/STOMACH CANCER Mother Family Medical History: Asthma, Cancer, CVA/TIA, Diabetes Mellitus, Myocardial Infarction ([place]) Additional Family Medical History / Comment(s): HEART PROBLEMS, CVA, ovarain cancer. maternal grandmother had strokes, and grandfather had dm Medications and Allergies Home Medications Medication Instructions Recorded Confirmed Type Ergocalciferol [Vitamin D2 50,000 unit PO MOTUWETH 05/30/15 03/20/18 History (DRISDOL)] Acetaminophen [Tylenol Extra 1,500 mg PO Q6HR PRN 03/20/18 03/20/18 History Strength] Atenolol [Tenormin] 50 mg PO DAILY 03/20/18 03/20/18 History Insulin Glargine/Lixisenatide 20 units SQ DAILY 03/20/18 03/20/18 History [[place] 100 Unit-33 Mcg/ml Pen] Levothyroxine Sodium [Synthroid] 100 mcg PO HS 03/20/18 03/20/18 History Levothyroxine Sodium [Synthroid] 600 mcg PO QAM 03/20/18 03/20/18 History Lisinopril [Zestril] 10 mg PO DAILY 03/20/18 03/20/18 History lamoTRIgine [LaMICtal] 500 mg PO DAILY 03/20/18 03/20/18 History metFORMIN HCL 1,000 mg PO BID 03/20/18 03/20/18 History traMADol HCl [Ultram] 50 mg PO Q6HR PRN 03/20/18 03/20/18 History Allergies Allergy/AdvReac Type Severity Reaction Status Date / Time Influenza Virus Vaccines Allergy Dyspnea Verified 03/20/18 19:48 Iodinated Contrast- Oral and Allergy Swelling Verified 03/20/18 19:48 IV Dye [Iodinated Contrast Media - IV Dye] Surgical - Exam Vital Signs Temp Pulse Resp BP Pulse Ox 98.1 F 112 H 18 146/88 96 03/20/18 18:45 03/20/18 18:45 03/20/18 18:45 03/20/18 18:45 03/20/18 18:45 - General no distress, no pain, other (moribund obesity) - Respiratory normal respiratory effort - Abdomen Abdomen: soft, non tender, no organomegaly Results - Labs 03/21/18 07:15 03/21/18 07:15 Abnormal Lab Results - Last 24 Hours (Table) 03/20/18 03/20/18 03/21/18 Range/Units 19:30 23:43 07:15 BUN 21 H (7-17) mg/dL Glucose 155 H (74-99) mg/dL POC Glucose (mg/dL) (75-99) mg/dL Hemoglobin A1c 11.5 H (4.0-6.0) % Plasma Lactic Acid Nathan 2.3 H* (0.7-2.0) mmol/L 03/21/18 03/21/18 03/21/18 Range/Units 07:21 11:19 17:28 BUN (7-17) mg/dL Glucose (74-99) mg/dL POC Glucose (mg/dL) 156 H 143 H 150 H (75-99) mg/dL Hemoglobin A1c (4.0-6.0) % Plasma Lactic Acid Nathan (0.7-2.0) mmol/L Diabetes panel 03/20/18 03/21/18 Range/Units 23:43 07:15 Sodium 141 (137-145) mmol/L Potassium 4.1 (3.5-5.1) mmol/L Chloride 106 (98-107) mmol/L Carbon Dioxide 22 (22-30) mmol/L BUN 21 H (7-17) mg/dL Creatinine 0.85 (0.52-1.04) mg/dL Glucose 155 H (74-99) mg/dL Hemoglobin A1c 11.5 H (4.0-6.0) % Calcium 8.8 (8.4-10.2) mg/dL Calcium panel 03/21/18 Range/Units 07:15 Calcium 8.8 (8.4-10.2) mg/dL Pituitary panel 03/21/18 Range/Units 07:15 Sodium 141 (137-145) mmol/L Potassium 4.1 (3.5-5.1) mmol/L Chloride 106 (98-107) mmol/L Carbon Dioxide 22 (22-30) mmol/L BUN 21 H (7-17) mg/dL Creatinine 0.85 (0.52-1.04) mg/dL Glucose 155 H (74-99) mg/dL Calcium 8.8 (8.4-10.2) mg/dL Adrenal panel 03/21/18 Range/Units 07:15 Sodium 141 (137-145) mmol/L Potassium 4.1 (3.5-5.1) mmol/L Chloride 106 (98-107) mmol/L Carbon Dioxide 22 (22-30) mmol/L BUN 21 H (7-17) mg/dL Creatinine 0.85 (0.52-1.04) mg/dL Glucose 155 H (74-99) mg/dL Calcium 8.8 (8.4-10.2) mg/dL Assessment and Plan (1) Urinary tract infection Narrative/Plan: I explained to the patient that it is unclear whether she has recurrent urinary tract infections or a chronic urinary tract infection that has never resolved. The patient has no evidence of urolithiasis or hydronephrosis on CT scan and a bladder scan was performed today which showed no significant post void residual. 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 The patient has poorly controlled diabetes mellitus which impairs her immune system. She also has chronic urinary incontinence with a wet perineum and secondary poor genital hygiene. Due to her moribund obesity treatment of the incontinence is impossible at this time. I told the patient that I would recommend short course treatments of her urinary tract infections with antibiotics based on her urine cultures. I do not feel that further urologic evaluation will be helpful at this time until the patient can lose a significant amount of weight. Current Visit: Yes Status: Acute Code(s): N39.0 - URINARY TRACT INFECTION, SITE NOT SPECIFIED SNOMED Code(s): 65915500
[2018-03-21] MEDS: cefTRIAXone IN SWFI 1,000 MG/10 ML SYRINGE IVP SCH (20:35)
--- NOTE | 2018-03-21 23:02 | CONS ---
CONSULTATION DATE OF SERVICE: 03/21/2018. REASON FOR CONSULTATION: Recurrent urinary tract infections. HISTORY OF PRESENT ILLNESS: The patient is a 47-year-old female who is complaining of having recurrent urinary tract infections since August of last year. The patient states that she has been treated with multiple courses of antibiotic therapy, predominantly with Macrobid, and has received about four courses of the antibiotics. The patient says that her symptoms has been getting worse over the last week or so, that prompted her to come to the ER. The patient has been complaining of pain on urination and some pain in the right flank area. The patient did have some chills but denies any high-grade fever. Pain to the right leg is more of a sharp pain in nature, about 4 to 5/10, and no radiation. The patient denies having any URI symptoms. No chest pain or shortness of breath or cough. No abdominal pain or any diarrhea. With these symptoms, the patient has been evaluated by the ER physician. The patient did have a CT of the abdomen and pelvis that was reported negative for any acute abnormality. Patient with no fever or elevated white count. Her urine was positive with , more than 1 to 2 WBCs. The patient has been treated with Rocephin 1 g daily. Infectious Disease was consulted for further recommendation regarding antibiotic therapy. REVIEW OF SYSTEMS: CONSTITUTIONAL: Positive for weakness and some chills. EYES: No complaints. ENT: No complaint. RESPIRATORY: No complaint. CARDIOVASCULAR: No complaint. GENITOURINARY: As per HPI. GASTROINTESTINAL: As per HPI. MUSCULOSKELETAL: No complaint. PSYCHOLOGIC: No complaint. ENDOCRINE: No complaint. NEUROLOGIC: No complaint. PAST MEDICAL HISTORY: Significant for diabetes mellitus, hypertension, osteoarthritis, rheumatoid arthritis, hypothyroidism, history of bilateral renal calculi, previous history of C difficile colitis. PAST SURGICAL HISTORY: Cholecystectomy, hysterectomy, tubal ligation, bariatric surgery. SOCIAL HISTORY: No history of smoking, drinking or drug use. FAMILY HISTORY: Father with history of esophageal cancer. ALLERGIES: Influenza vaccine and IV contrast dye. MEDICATIONS: Medications include the patient is currently on Ultram, Lamisil, Restoril, Protonix, Narcan, Glucophage, Zestril, Synthroid, Toradol, NovoLog, heparin, vitamin D2, Tenormin, and Tylenol. EXAMINATION: Blood pressure 124/84, pulse of 94, temperature 98, she is 96% on room air. GENERAL DESCRIPTION: A middle aged female up in the bed in no distress. No tachypnea or accessory muscle of respiration use. HEENT: No pallor or scleral icterus. Oral mucosa is dry. No pharyngeal erythema or thrush. NECK: Trachea central. No thyromegaly. LUNGS: Unlabored breathing. Clear to auscultation anteriorly. No wheeze or crackle. HEART: S1, S2 regular rate and rhythm. No murmurs. ABDOMEN: Soft. Mild right flank tenderness. No guarding or rigidity. No masses palpable. EXTREMITIES: No edema of the feet. NEUROLOGIC: The patient is awake, alert, oriented x3. Mood and affect normal. LABS: Hemoglobin is 13, white count 8.2, admission white count was 11.5 with a BUN of 21, creatinine 0.85. Urine culture has show E coli. DIAGNOSTIC IMPRESSION AND PLAN: Patient is in the hospital with abdominal pain and urinary symptoms, with concern for recurrent urinary tract infection. The source of the recurrent UTI could have been patient's underlying diabetes, urine incontinence and poor hygiene. The CT was negative for any structural abnormality or any urolithiasis that may have brought on recurrent urinary tract infections. PLAN: 1. Rocephin 1 g IV piggyback daily as the E coli was sensitive to this antibiotic while waiting for the culture to finalize and white count has improved. 2. The patient has been educated about possible hygiene. It remains hard to prevent recurrent UTIs in the future. 3. We will followup on clinical condition and culture to further adjust medication if needed. Thank you for this consultation. Will follow this patient along with you. MMODL / IJN: [id number] /
[2018-03-22] MEDS: HEPARIN SODIUM,PORCINE 5,000 UNIT/ML 1 ML VIAL SQ SCH ×4 (00:06→22:53)
[2018-03-22] MEDS: KETOROLAC 30 MG/ML 1 ML VIAL IVP PRN ×2 (00:32→09:39)
[2018-03-22] MEDS: LEVOTHYROXINE 100 MCG TAB PO SCH ×2 (05:12→21:17)
[2018-03-22 07:08] LABS: Glucose,Whole Blood 140 mg/dL (75-99)
[2018-03-22] MEDS: SODIUM CHLORIDE 0.9% 1,000 ML IV SCH (07:38)
[2018-03-22] MEDS: INSULIN ASPART 100 UNIT/ML 1 ML 10 ML VIAL SQ SCH ×4 (07:39→21:16)
[2018-03-22] MEDS: PANTOPRAZOLE 40 MG TABLET PO SCH (07:40)
[2018-03-22] MEDS: metFORMIN 500 MG TAB PO SCH ×2 (07:40→12:49)
[2018-03-22] MEDS: ATENOLOL 50 MG TAB PO SCH (07:41)
[2018-03-22] MEDS: LISINOPRIL 10 MG TAB PO SCH (07:41)
[2018-03-22] MEDS: TERBINAFINE 250 MG TAB PO SCH (07:41)
[2018-03-22 11:19] LABS: Glucose,Whole Blood 144 mg/dL (75-99)
--- NOTE | 2018-03-22 13:57 | PN ---
PROGRESS NOTE DATE OF SERVICE: 03/22/2018 This is a 47-year-old woman who was admitted with recurrent UTI, with failure of outpatient treatment, is being closely monitored. The patient had E coli grown from the culture. The patient is on IV antibiotics. Final cultures are pending at this time. Urology has evaluated the patient and there is no current nephrolithiasis. No chest pain. No palpitations. No fever. The patient also has uncontrolled diabetes mellitus and patient is also working with Dr. Anthony regarding bariatric surgical program, also. PHYSICAL EXAM: Alert and oriented x3. Pulse 80, blood pressure 143/60, respirations 16, temperature 97.7, pulse ox 96% on room air. HEENT: Conjunctivae normal. NECK: No jugular venous distension. RESPIRATORY: Breath sounds diminished at the bases, no rhonchi, no crackles. ABDOMEN: Soft, obese, nontender. No mass palpable. LEGS: No edema, no swelling. NERVOUS SYSTEM: No focal deficits. LABS: CBC within normal limits and glucose 163. ASSESSMENT: 1. Acute urinary tract infection with failure of outpatient treatment. 2. History of recurrent urinary tract infections. 3. History of nephrolithiasis. 4. Diabetes mellitus type 2 uncontrolled with hyperglycemia, possibly with high hemoglobin A1c of 11. 5. History of increased WBC. 6. Gastroesophageal reflux disease. 7. Hypertension. 8. History of degenerative joint disease. 9. History of pneumonia. 10.History of rheumatoid arthritis. 11.History of renal calculi. 12.History of fungal infection. 13.History of thyroid cancer. 14.History of fibromyalgia. 15.History of vitamin D deficiency. 16.History of Clostridium difficile colitis. 17.History of Pelayo's palsy. 18.Obesity with body mass index of 69.1. RECOMMENDATION: Recommend to continue with current medications, continue with symptomatic treatment. Continue with antibiotics. Otherwise, follow the cultures. Closely monitor with Urology and as per Infectious Disease. Guarded prognosis. Further recommendations to follow. MMODL / IJN: [id number] /
[2018-03-22] MEDS ORDERED: ONDANSETRON 4 MG/2 ML VIAL IVP PRN (14:07)
[2018-03-22] MEDS: [UNRECOGNIZED DRUG - OTHER] SQ SCH (14:24)
[2018-03-22 14:44] VITALS: RESP 18
--- NOTE | 2018-03-22 16:09 | PN ---
PROGRESS NOTE DATE OF SERVICE: 03/22/2018. REASON FOR FOLLOWUP: E coli UTI infection recurrent with possible pyelonephritis. INTERVAL HISTORY: The patient is afebrile. She did mention that the pain to the right leg area seems to have improved compared to yesterday. Denies having any chest pain. No shortness of breath or cough. No abdominal pain or any diarrhea. PHYSICAL EXAMINATION: Blood pressure 130/55, pulse of 81, temperature 98.2. She is 95% on room air. General description is a middle-aged female up in the bed in no distress. RESPIRATORY SYSTEM: Unlabored breathing. Clear to auscultation. HEART: S1, S2. Regular rate and rhythm. ABDOMEN: Soft, no significant flank tenderness. LABS: White count 8.2. Urine cultures unfortunately not done. Blood culture so far negative. DIAGNOSTIC IMPRESSION AND PLAN: Patient with recurrent urinary tract infection predominantly with an E coli with a possible pyelonephritis. Currently responding to Rocephin and that will be continued. Will titrate on her urine cultures. Continue supportive care. MMODL / IJN: [id number] /
[2018-03-22 17:30] LABS: Glucose,Whole Blood 121 mg/dL (75-99)
[2018-03-22 20:21] LABS: Glucose,Whole Blood 139 mg/dL (75-99)
[2018-03-22] MEDS: cefTRIAXone IN SWFI 1,000 MG/10 ML SYRINGE IVP SCH (21:17)
[2018-03-23] MEDS: KETOROLAC 30 MG/ML 1 ML VIAL IVP PRN (04:36)
[2018-03-23] MEDS: SODIUM CHLORIDE 0.9% 1,000 ML IV SCH (05:33)
[2018-03-23 05:37] VITALS: BP 135/75; PULSE 92; TEMP 98.2
[2018-03-23] MEDS: LEVOTHYROXINE 100 MCG TAB PO SCH (05:40)
[2018-03-23 06:57] LABS: Glucose,Whole Blood 158 mg/dL (75-99)
[2018-03-23] MEDS: LISINOPRIL 10 MG TAB PO SCH (07:36)
[2018-03-23] MEDS: metFORMIN 500 MG TAB PO SCH ×2 (07:36→13:36)
[2018-03-23] MEDS: ATENOLOL 50 MG TAB PO SCH (07:36)
[2018-03-23] MEDS: HEPARIN SODIUM,PORCINE 5,000 UNIT/ML 1 ML VIAL SQ SCH (07:37)
[2018-03-23] MEDS: PANTOPRAZOLE 40 MG TABLET PO SCH (07:37)
[2018-03-23] MEDS: INSULIN ASPART 100 UNIT/ML 1 ML 10 ML VIAL SQ SCH ×2 (07:39→13:06)
[2018-03-23] MEDS: TERBINAFINE 250 MG TAB PO SCH (10:08)
[2018-03-23 12:11] LABS: Glucose,Whole Blood 128 mg/dL (75-99)
[2018-03-23] MEDS: [UNRECOGNIZED DRUG - OTHER] SQ SCH (15:15)
--- NOTE | 2018-03-23 18:01 | PN ---
PROGRESS NOTE DATE OF SERVICE: 03/23/2018. REASON FOR FOLLOWUP: Recurrent right-sided UTI and pyelonephritis. INTERVAL HISTORY: The patient is afebrile. She is feeling better and wants to go home. Pain to the right flank area has improved. No nausea, vomiting. Denies any chest pain. No shortness of breath or cough. EXAMINATION: Blood pressure 135/75, pulse of 92, temperature 98.2. She is 96% on room air. General description is a middle aged female up in the bed in no distress. RESPIRATORY SYSTEM: Unlabored breathing. Clear to auscultation anteriorly. HEART: S1, S2. Regular rate and rhythm. ABDOMEN: Soft, no tenderness. LABS: White count 8.2. Urine culture currently pending. Blood culture so far negative. DIAGNOSTIC IMPRESSION AND PLAN: Patient with recurrent urinary tract infection. She has grown mostly E coli in the past with current cultures pending; however, the patient wants to go home. Antibiotic will be switched over to Ceftin 500 mg twice a day for 10 days for possible pyelonephritis right side with the same pathogen. She has been educated about her recurrent urinary tract infection and in the future. All questions were answered. Scripts were sent to the pharmacy. RAJNI / TAYN: [id number] /
--- NOTE | 2018-03-23 19:52 | DS ---
DISCHARGE SUMMARY DATE OF SERVICE: 03/23/2018 FINAL DIAGNOSES: 1. Acute urinary tract infection with failure of outpatient treatment. 2. History of recurrent urinary tract infections. 3. History of nephrolithiasis. 4. Diabetes mellitus type 2, uncontrolled with hypoglycemia, possibly with high hemoglobin A1c of 11. 5. History increased WBC. 6. History of gastroesophageal reflux disease. 7. Hypertension. 8. History of degenerative joint disease. 9. History of pneumonia. 10.History rheumatoid arthritis. 11.History of renal calculi. 12.History of fungal infection. 13.History of thyroid cancer. 14.History of fibromyalgia. 15.History of vitamin D deficiency. 16.History of C diff colitis. 17.History of Pelayo's palsy. 18.Obesity with body mass index 69.1. DISCHARGE DISPOSITION: The patient is being discharged in stable condition with guarded prognosis. HISTORY: This 47-year-old woman with past medical history of multiple medical problems is being followed by Dr. Augustine Ballesteros in the outpatient setting with recurrent urinary tract infections. The patient was treated symptomatically with IV diuretics. Cultures are negative so far. The patient improved significantly. Patient is also seen by Urology. There is no evidence of nephrolithiasis currently per Dr. Rodarte. Dr. Diaz from Infectious Disease saw the patient. On exam, vitals are stable. CARDIOVASCULAR: S1, S2 ABDOMEN: Soft. NERVOUS SYSTEM: No focal deficit. Hygiene was recommended also, recommend close follow up with Dr. Maria Eugenia Bonilla for evaluation and control of diabetes mellitus. DISCHARGE ADVICE: 1. Diet is cardiac, consistent carb. 2. Activity limited until follow up. 3. Follow up with Dr. Augustine Ballesteros 1-2 days. 4. Follow up with Dr. Diaz as recommend. MEDICATIONS: 1. Tylenol p.r.n. 2. Atenolol 50 mg p.o. daily. 3. Ceftin 500 mg p.o. b.i.d. for 10 days. 4. Vitamin D2 50,000 daily. 5. Insulin glargine and lixisenatide 26 units subcu daily. 6. Lamictal 100 mg p.o. daily. 7. Synthroid 100 mcg p.o. q.h.s. 8. Synthroid 60 mcg mcg p.o. q.a.m. 9. Zestril 10 mg p.o. daily. 10.Metformin 1000 mg p.o. b.i.d. 11.Ultram 50 mg q.6h p.r.n. Once again, the patient discharged in stable condition with guarded prognosis. RAJNI / TAYN: [id number] /
== END 2018-03-23 15:35 | disposition home or self-care (01) | DRG 690 ==
LOC: EC 18:29 → 5MS5E 20:42
PROVIDERS: ADMIT Family Medicine; ATTEND Family Medicine
DX: N39.0 Urinary tract infection, site not specified (principal); Z68.44 Body mass index [BMI] 60.0-69.9, adult; E66.01 Morbid (severe) obesity due to excess calories; E11.65 Type 2 diabetes mellitus with hyperglycemia; B96.20 Unspecified Escherichia coli [E. coli] as the cause of diseases classified elsewhere; K21.9 Gastro-esophageal reflux disease without esophagitis; I10 Essential (primary) hypertension; M19.91 Primary osteoarthritis, unspecified site; M06.9 Rheumatoid arthritis, unspecified; N39.46 Mixed incontinence; M79.7 Fibromyalgia; E89.0 Postprocedural hypothyroidism; E55.9 Vitamin D deficiency, unspecified; G51.0 Bell's palsy; I83.93 Asymptomatic varicose veins of bilateral lower extremities; M54.9 Dorsalgia, unspecified; G89.29 Other chronic pain; K31.7 Polyp of stomach and duodenum; K64.9 Unspecified hemorrhoids; M79.604 Pain in right leg; Z71.3 Dietary counseling and surveillance; Z79.4 Long term (current) use of insulin; Z79.890 Hormone replacement therapy; Z79.899 Other long term (current) drug therapy; Z85.850 Personal history of malignant neoplasm of thyroid; Z87.442 Personal history of urinary calculi; Z87.01 Personal history of pneumonia (recurrent); Z88.7 Allergy status to serum and vaccine; Z91.041 Radiographic dye allergy status; Z87.440 Personal history of urinary (tract) infections; Z90.710 Acquired absence of both cervix and uterus; Z85.42 Personal history of malignant neoplasm of other parts of uterus; Z90.49 Acquired absence of other specified parts of digestive tract; Z98.84 Bariatric surgery status; Z98.51 Tubal ligation status; Z86.19 Personal history of other infectious and parasitic diseases; Z92.21 Personal history of antineoplastic chemotherapy; Z86.32 Personal history of gestational diabetes; Z80.0 Family history of malignant neoplasm of digestive organs; Z82.49 Family history of ischemic heart disease and other diseases of the circulatory system; Z82.3 Family history of stroke; Z82.5 Family history of asthma and other chronic lower respiratory diseases; Z83.3 Family history of diabetes mellitus
CPT/HCPCS: 36415; 74176; 80048; 80053; 81001; 83036; 83605; 85025; 87040; 87086; 96361; 96374; 96375; 99284

== ENCOUNTER 2018-04-25 20:53 | Emergency (ER) | payer MEDICAID ==
[2018-04-25] MEDS ORDERED: SODIUM CHLORIDE 0.9% 500 ML IV STA (21:39)
[2018-04-25 21:54] LABS: Appearance,Urine Cloudy (Clear); Bacteria,Urine Many /hpf; Bilirubin,Urine Negative (Negative); Blood,Urine Negative (Negative); Color,Urine Yellow; Glucose,Urine (UA) Negative (Negative); Hyaline Casts,Urine 39 /lpf (0-2); Ketones,Urine Trace (Negative); Leukocyte Esterase,Urine Moderate (Negative); Mucus,Urine Few /hpf; Nitrite,Urine Positive (Negative); PH, Urine 5.5 (5.0-8.0); Protein,Urine Trace (Negative); RBC,Urine 1 /hpf (0-5); Specific Gravity,Urine 1.025 (1.001-1.035); Squamous Epithelial Cell,Urine 4 /hpf (0-4); WBC,Urine 8 /hpf (0-5)
[2018-04-25 22:07] LABS: Basophils # (A) 0.1 k/uL (0-0.2); Basophils % (A) 1 %; Eosinophils # (A) 0.9 k/uL (0-0.7); Eosinophils % (A) 8 %; HGB 13.9 gm/dL (11.4-16.0); Lymphocytes # (A) 2.8 k/uL (1.0-4.8); Lymphocytes % (A) 26 %; MCHC 33.2 g/dL (31.0-37.0); MCV 87.5 fL (80.0-100.0); Mean Platelet Volume 7.1; Monocytes # (A) 0.5 k/uL (0-1.0); Monocytes % (A) 5 %; Neutrophils # (A) 6.6 k/uL (1.3-7.7); Neutrophils % (A) 60 %; Platelet Count 314 k/uL (150-450); RDW 13.7 % (11.5-15.5)
[2018-04-25 22:18] LABS: Albumin 4.3 g/dL (3.5-5.0); Calcium 9.8 mg/dL (8.4-10.2); Potassium 4.7 mmol/L (3.5-5.1); Total Bilirubin 0.5 mg/dL (0.2-1.3); Total Protein 8.1 g/dL (6.3-8.2)
[2018-04-25] MEDS ORDERED: KETOROLAC 30 MG/ML 1 ML VIAL IVP STA (22:33)
--- NOTE | 2018-04-25 22:34 | XR ---
EXAMINATION TYPE: XR KUB DATE OF EXAM: 04/25/2018 COMPARISON: 06/09/2015 HISTORY: Right-sided pain TECHNIQUE: 2 views FINDINGS: There is no evidence of intestinal obstruction or pneumoperitoneum. There are clips from ch olecystectomy. There are clips in the left upper quadrant. There is no evidence of a mass. There are no pathologic calcifications over the kidneys. Lung bases are clear. IMPRESSION: Nonacute abdomen. No change.
--- NOTE | 2018-04-25 22:36 | ED ---
General Adult HPI - General Chief complaint: Abdominal Pain Stated complaint: abdominal pain Time Seen by Provider: 04/25/18 21:23 Source: patient, RN notes reviewed, old records reviewed Mode of arrival: wheelchair Limitations: no limitations - History of Present Illness Initial comments: 47-year-old female presenting for right flank pain and right upper quadrant abdominal pain. Patient's symptoms have been ongoing for several weeks. She was admitted to the hospital with urinary tract infection and similar right flank pain. She was treated with antibiotics and symptoms significantly improved. She states her symptoms have continued despite medical treatment. She was seen by her primary care physician in between discharge and today's visit. She denies fever and chills, denies changes in her bowels. Denies nausea vomiting. Pain is intermittent and sharp in nature. - Related Data Home Medications Medication Instructions Recorded Confirmed Ergocalciferol [Vitamin D2 50,000 unit PO MOTUWETH 05/30/15 03/20/18 (DRISDOL)] Atenolol [Tenormin] 50 mg PO DAILY 03/20/18 03/20/18 Insulin Glargine/Lixisenatide 20 units SQ DAILY 03/20/18 03/20/18 [Soliqua 100 Unit-33 Mcg/ml Pen] Levothyroxine Sodium [Synthroid] 100 mcg PO HS 03/20/18 03/20/18 Levothyroxine Sodium [Synthroid] 600 mcg PO QAM 03/20/18 03/20/18 Lisinopril [Zestril] 10 mg PO DAILY 03/20/18 03/20/18 lamoTRIgine [LaMICtal] 500 mg PO DAILY 03/20/18 03/20/18 metFORMIN HCL 1,000 mg PO BID 03/20/18 03/20/18 traMADol HCl [Ultram] 50 mg PO Q6HR PRN 03/20/18 03/20/18 Previous Rx's Medication Instructions Recorded Acetaminophen Tab [Tylenol] 650 mg PO Q6HR PRN tab 03/23/18 Cefuroxime Axetil [Ceftin] 500 mg PO BID #20 tab 03/23/18 Cephalexin [Keflex] 500 mg PO Q8HR #30 cap 04/25/18 Allergies Allergy/AdvReac Type Severity Reaction Status Date / Time Influenza Virus Vaccines Allergy Dyspnea Verified 04/25/18 20:57 Iodinated Contrast- Oral and Allergy Swelling Verified 04/25/18 20:57 IV Dye [Iodinated Contrast Media - IV Dye] Review of Systems ROS Statement: Those systems with pertinent positive or pertinent negative responses have been documented in the HPI. ROS Other: All systems not noted in ROS Statement are negative. Past Medical History Past Medical History: Cancer, GERD/Reflux, Hypertension, Osteoarthritis (OA), Pneumonia, Rheumatoid Arthritis (RA), Thyroid Disorder Additional Past Medical History / Comment(s): bilateral RENAL CALCULI, urinary tract calculi, fungal lung infection getting better(pt stated she was told it could take 7 years to fully clear)it was due to mold in home. bronchitis and pneumonia's which pt state are also due to mold in her home-she since has moved , respiratory failure which pt states is due to aspiration with surgery, thyroid cancer with L lobe removed, oaviran(not sure which one was remove) uterine cancer with hysterectomy sx and oral chemo, fibromyalgia, chronic backpain, hypothryroidism, varicose veins bilaterally, UTIs,c-diff 2006, vitamin D deficiency, hemorrhoids, sinusitis, duodenal polyps, anemia-past iron infusion and blood transfusion, gestational diabetes, past [place] due to shingles- affected rt side of face.(pt stated she has reoccuring bells palsy- when she is under stress but symptoms clear when no longer stressed)) History of Any Multi-Drug Resistant Organisms: C-DIFF Date of last positivie culture/infection: 2006 per pt MDRO Source:: stool Past Surgical History: Ablation, Bariatric Surgery, Cholecystectomy, Hysterectomy, Tonsillectomy, Tubal Ligation Additional Past Surgical History / Comment(s): Multiple uterine biopsies, L side thyroid bx, Left side thyroid removed 2009, , lap banding with lap band removed and gastric mesh then gastric sleeve, ESWLs and some kidney stones surgically removed-basketing, ureteroscopy, cystoscopies with stents, colonoscopy, EGD, uterus and one ovary removed, Past Anesthesia/Blood Transfusion Reactions: No Reported Reaction Additional Past Anesthesia/Blood Transfusion Reaction / Comment(s): Hx of aspiration with intubated. Past Psychological History: Anxiety Smoking Status: Never smoker Past Alcohol Use History: None Reported Past Drug Use History: None Reported - Past Family History Father History Unknown: Yes Family Medical History: Cancer Additional Family Medical History / Comment(s): COLON/STOMACH CANCER- of at age 63 yrs. FATHER MOM HAD ESOPHAGEAL/STOMACH CANCER Mother Family Medical History: Asthma, Cancer, CVA/TIA, Diabetes Mellitus, Myocardial Infarction ([place]) Additional Family Medical History / Comment(s): HEART PROBLEMS, CVA, ovarain cancer. maternal grandmother had strokes, and grandfather had dm General Exam Limitations: no limitations General appearance: alert, in no apparent distress Head exam: Present: atraumatic, normocephalic Eye exam: Present: normal appearance, PERRL, EOMI ENT exam: Present: normal exam Neck exam: Present: normal inspection. Absent: tenderness, meningismus Respiratory exam: Present: normal lung sounds bilaterally. Absent: respiratory distress, wheezes Cardiovascular Exam: Present: regular rate, normal rhythm GI/Abdominal exam: Present: soft, distended, tenderness (Right upper quadrant tenderness). Absent: guarding, rebound Extremities exam: Present: normal inspection, normal capillary refill. Absent: pedal edema Back exam: Present: normal inspection, CVA tenderness (R) Neurological exam: Present: alert, oriented X3, CN II-XII intact. Absent: motor sensory deficit Psychiatric exam: Present: normal affect, normal mood Course Vital Signs 04/25/18 20:54 Temperature 98.2 F Pulse Rate 106 H Respiratory 20 Rate Blood Pressure 140/92 O2 Sat by Pulse 97 Oximetry Medical Decision Making - Medical Decision Making 47-year-old female with right flank pain and right upper quadrant pain. X-rays obtained, negative for intraperitoneal free air, obstruction, or radiopaque stone. Ultrasound obtained which shows normal right kidney no hydronephrosis, common bile duct 9 mm, surgically absent gallbladder, and fatty liver. Laboratory studies reveal white cell count 11 which is mildly elevated. Creatinine 1.1 which is treated with IV hydration in the emergency department. Urinalysis is positive for nitrate, many bacteria. Previous urine culture results are reviewed. Patient will be started on antibiotics and repeat urine culture is obtained. Patient will follow-up with her primary care physician. - Lab Data Result diagrams: 04/25/18 21:55 04/25/18 21:55 Lab Results 04/25/18 04/25/18 04/25/18 Range/Units 21:21 21:55 21:55 WBC 11.0 H (3.8-10.6) k/uL RBC 4.80 (3.80-5.40) m/uL Hgb 13.9 (11.4-16.0) gm/dL Hct 42.0 (34.0-46.0) % MCV 87.5 (80.0-100.0) fL MCH 29.0 (25.0-35.0) pg MCHC 33.2 (31.0-37.0) g/dL RDW 13.7 (11.5-15.5) % Plt Count 314 (150-450) k/uL Neutrophils % 60 % Lymphocytes % 26 % Monocytes % 5 % Eosinophils % 8 % Basophils % 1 % Neutrophils # 6.6 (1.3-7.7) k/uL Lymphocytes # 2.8 (1.0-4.8) k/uL Monocytes # 0.5 (0-1.0) k/uL Eosinophils # 0.9 H (0-0.7) k/uL Basophils # 0.1 (0-0.2) k/uL Sodium 138 (137-145) mmol/L Potassium 4.7 (3.5-5.1) mmol/L Chloride 106 (98-107) mmol/L Carbon Dioxide 24 (22-30) mmol/L Anion Gap 8 mmol/L BUN 28 H (7-17) mg/dL Creatinine 1.10 H (0.52-1.04) mg/dL Est GFR (CKD-EPI)AfAm 69 (>60 ml/min/1.73 sqM) Est GFR (CKD-EPI)NonAf 60 (>60 ml/min/1.73 sqM) Glucose 135 H (74-99) mg/dL Plasma Lactic Acid Nathan (0.7-2.0) mmol/L Calcium 9.8 (8.4-10.2) mg/dL Total Bilirubin 0.5 (0.2-1.3) mg/dL AST 25 (14-36) U/L ALT 27 (9-52) U/L Alkaline Phosphatase 71 (38-126) U/L Total Protein 8.1 (6.3-8.2) g/dL Albumin 4.3 (3.5-5.0) g/dL Amylase 45 (30-110) U/L Lipase 86 (23-300) U/L Urine Color Yellow Urine Appearance Cloudy H (Clear) Urine pH 5.5 (5.0-8.0) Ur Specific [place] 1.025 (1.001-1.035) Urine Protein Trace H (Negative) Urine Glucose (UA) Negative (Negative) Urine Ketones Trace H (Negative) Urine Blood Negative (Negative) Urine Nitrite Positive H (Negative) Urine Bilirubin Negative (Negative) Urine Urobilinogen 2.0 (<2.0) mg/dL Ur Leukocyte Esterase Moderate H (Negative) Urine RBC 1 (0-5) /hpf Urine WBC 8 H (0-5) /hpf Ur Squamous Epith Cells 4 (0-4) /hpf Urine Bacteria Many H (None) /hpf Hyaline Casts 39 H (0-2) /lpf Urine Mucus Few H (None) /hpf 04/25/18 Range/Units 21:55 WBC (3.8-10.6) k/uL RBC (3.80-5.40) m/uL Hgb (11.4-16.0) gm/dL Hct (34.0-46.0) % MCV (80.0-100.0) fL MCH (25.0-35.0) pg MCHC (31.0-37.0) g/dL RDW (11.5-15.5) % Plt Count (150-450) k/uL Neutrophils % % Lymphocytes % % Monocytes % % Eosinophils % % Basophils % % Neutrophils # (1.3-7.7) k/uL Lymphocytes # (1.0-4.8) k/uL Monocytes # (0-1.0) k/uL Eosinophils # (0-0.7) k/uL Basophils # (0-0.2) k/uL Sodium (137-145) mmol/L Potassium (3.5-5.1) mmol/L Chloride (98-107) mmol/L Carbon Dioxide (22-30) mmol/L Anion Gap mmol/L BUN (7-17) mg/dL Creatinine (0.52-1.04) mg/dL Est GFR (CKD-EPI)AfAm (>60 ml/min/1.73 sqM) Est GFR (CKD-EPI)NonAf (>60 ml/min/1.73 sqM) Glucose (74-99) mg/dL Plasma Lactic Acid Nathan 1.6 (0.7-2.0) mmol/L Calcium (8.4-10.2) mg/dL Total Bilirubin (0.2-1.3) mg/dL AST (14-36) U/L ALT (9-52) U/L Alkaline Phosphatase (38-126) U/L Total Protein (6.3-8.2) g/dL Albumin (3.5-5.0) g/dL Amylase (30-110) U/L Lipase (23-300) U/L Urine Color Urine Appearance (Clear) Urine pH (5.0-8.0) Ur Specific [place] (1.001-1.035) Urine Protein (Negative) Urine Glucose (UA) (Negative) Urine Ketones (Negative) Urine Blood (Negative) Urine Nitrite (Negative) Urine Bilirubin (Negative) Urine Urobilinogen (<2.0) mg/dL Ur Leukocyte Esterase (Negative) Urine RBC (0-5) /hpf Urine WBC (0-5) /hpf Ur Squamous Epith Cells (0-4) /hpf Urine Bacteria (None) /hpf Hyaline Casts (0-2) /lpf Urine Mucus (None) /hpf Disposition Clinical Impression: Urinary tract infection, Fatty liver Disposition: HOME SELF-CARE Condition: Good Instructions: Non-Alcoholic Fatty Liver Disease (ED), Urinary Tract Infection in Women (ED) Prescriptions: Cephalexin [Keflex] 500 mg PO Q8HR #30 cap Is patient prescribed a controlled substance at d/c from ED?: No Referrals: Augustine Ballesteros MD [Primary Care Provider] - 1-2 days Time of Disposition: 23:36
--- NOTE | 2018-04-25 23:22 | US ---
EXAMINATION TYPE: US liver DATE OF EXAM: 04/25/2018 COMPARISON: NONE CLINICAL HISTORY: Pain. Pain. Exam limitations due to large body habitus. EXAM MEASUREMENTS: Liver Length: 23.7 cm Gallbladder Wall: Surgically absent cm CBD: cm Right Kidney: 10.9 x 3.8 x 4.2 cm Exam limitations due to large body habitus. Pancreas: Obscured by bowel gas Liver: Increased attenuation Gallbladder: Surgically absent Evidence for sonographic Goldman's sign: No CBD: wnl Right Kidney: No hydronephrosis or masses seen IMPRESSION: Liver is somewhat echogenic that could relate to fatty infiltration. Common bile duct is 9 mm. Intrahepatic bile ducts are not dilated. No free fluid.
[2018-04-25 23:48] VITALS: BP 152/83; PULSE 85; RESP 17; TEMP 97.8
== END 2018-04-25 23:49 | disposition home or self-care (01) ==
LOC: EC 20:53
DX: N39.0 Urinary tract infection, site not specified (principal); K76.0 Fatty (change of) liver, not elsewhere classified; I10 Essential (primary) hypertension; E03.9 Hypothyroidism, unspecified; M79.7 Fibromyalgia; E55.9 Vitamin D deficiency, unspecified; D72.829 Elevated white blood cell count, unspecified; Z92.21 Personal history of antineoplastic chemotherapy; Z90.49 Acquired absence of other specified parts of digestive tract; Z90.710 Acquired absence of both cervix and uterus; Z98.51 Tubal ligation status; Z98.84 Bariatric surgery status; Z85.42 Personal history of malignant neoplasm of other parts of uterus; Z85.850 Personal history of malignant neoplasm of thyroid; Z85.43 Personal history of malignant neoplasm of ovary; Z87.442 Personal history of urinary calculi; Z79.4 Long term (current) use of insulin; Z79.899 Other long term (current) drug therapy; Z88.7 Allergy status to serum and vaccine; Z91.041 Radiographic dye allergy status
CPT/HCPCS: 36415; 80053; 82150; 83605; 83690; 85025; 81001; 87086; 74018; 76705; 99285; 96374; 96361; J1885

== ENCOUNTER → 2020-10-20 | Outpatient (CLI) | payer MEDICAID ==
--- NOTE | 2020-10-20 14:57 | MM ---
Reason for exam: screening (asymptomatic). Last mammogram was performed 5 years and 3 months ago. History: Patient has history of endometrial cancer at age 33. Physical Findings: A clinical breast exam by your physician is recommended on an annual basis and results should be correlated with mammographic findings. MG 3D Screening Mammo W/Cad Bilateral CC, MLO, and XCCL view(s) were taken. Prior study comparison: July 20, 2015, bilateral MG screening mammo w CAD. There are scattered fibroglandular densities. There are benign appearing round calcifications bilaterally. There is chronic nodularity in the left breast. Asymmetric breast tissue left breast, stable. There is no discrete abnormality. ASSESSMENT: Benign, BI-RAD 2 RECOMMENDATION: Routine screening mammogram of both breasts in 1 year.
== END | disposition home or self-care (01) ==
LOC: RADMAMWWP 08:04
PROVIDERS: ATTEND Family Medicine
DX: Z12.31 Encounter for screening mammogram for malignant neoplasm of breast (principal)
CPT/HCPCS: 77063; 77067

== ENCOUNTER 2020-10-21 09:09 | Day surgery (SDC) | payer MEDICAID ==
[2020-10-18 10:24] VITALS: BMI 59.1
[~2020-10-21 09:09] MED LIST: LACTATED RINGERS 1,000 ML IV SCH
[2020-10-21 09:24] VITALS: TEMP 98.7
[2020-10-21] MEDS ORDERED: LACTATED RINGERS 1,000 ML IV ONE (09:24)
[2020-10-21] MEDS ORDERED: LIDOCAINE 1% (10MG/ML) FOR IV START INTRADERMA ONE (09:24)
[2020-10-21 09:37] LABS: Glucose,Whole Blood 347 mg/dL (75-99)
[2020-10-21] MEDS ORDERED: INSULIN ASPART (NovoLOG) 100 UNIT/ML VIAL SQ ONE ×2 (10:11→11:21)
[2020-10-21] MEDS ORDERED: PROPOFOL 10 MG/ML 20 ML VIAL IV ONE (10:13)
[2020-10-21] MEDS ORDERED: LIDOCAINE 1% INJ 10MG/ML (20 ML MDV) ONE (10:13)
--- NOTE | 2020-10-21 10:36 | P.PCN ---
Date of Procedure: 10/21/20 Procedure(s) Performed: Brief history: Patient is a pleasant 49-year-old white female scheduled for an elective upper endoscopy as well as colonoscopy as a part of evaluation of GERD and intermittent rectal bleeding. She also has family history of colon cancer diagnosed in her father at age 60. She has history of prior gastric surgery done 10 years ago. Procedure performed: Esophagogastroduodenoscopy with biopsy Colonoscopy Preoperative diagnosis: GERD/intermittent rectal bleeding Family history of colon cancer Anesthesia: MAC Procedure: After informed consent was obtained from the patient was brought into the endoscopy unit and IV sedation was administered by anesthesia under continuous monitoring. Initially upper endoscopy was done. The Olympus GF 160 video endoscope was inserted inserted into the mouth and esophagus intubated without any difficulty and was gradually advanced into the stomach and duodenum and carefully examined. The bulb and second part of the duodenum appeared normal. The scope was then withdrawn into the stomach adequately insufflated with air and upon careful examination the antrum had mild gastritis and biopsies were done from this area. There was evidence of gastric sleeve surgery noted. The body of the stomach appeared normal. The scope was then withdrawn into the esophagus. The GE junction was located at 38 cm to the incisors. Small sliding Hiatal hernia noted. It appeared regular with no erythema erosions or ulcerations. Rest of the esophagus appeared normal. Patient tolerated the procedure well. At this time the patient continued to remain sedation. Initial digital rectal examination was normal. Olympus CF 160 video colonoscope was then inserted into the rectum and gradually advanced to the cecum without any difficulty. Careful examination was performed as the scope was gradually being withdrawn. The prep was excellent. The cecum, ascending colon, transverse colon, descending colon, sigmoid colon and rectum appeared normal. Retroflexion was performed in the rectum and all internal hemorrhoids were noted. Patient tolerated the procedure well. Impression: 1. Upper endoscopy revealed evidence of gastric sleeve surgery and mild gastritis. 2. Colonoscopy revealed small internal hemorrhoids but no evidence of color ectal neoplasia Recommendations: Findings of this examination were discussed with the patient as well as her family. She will remain on a high-fiber diet and take fiber supplements a regular basis and avoid straining and constipation. She was advised to have a repeat screening colonoscopy every 5 years because of the family history of colon cancer.
[2020-10-21 10:39] VITALS: RESP 16
[2020-10-21 10:50] VITALS: BP 138/88; PULSE 94
[2020-10-21 11:03] LABS: Glucose,Whole Blood 362 mg/dL (75-99)
== END 2020-10-21 11:32 ==
LOC: ORWHC2ENDO 09:09
PROVIDERS: ATTEND Internal Medicine Gastroenterology
DX: K29.50 Unspecified chronic gastritis without bleeding (principal); K44.9 Diaphragmatic hernia without obstruction or gangrene; K64.8 Other hemorrhoids; Z80.0 Family history of malignant neoplasm of digestive organs; Z91.041 Radiographic dye allergy status; I10 Essential (primary) hypertension; E11.9 Type 2 diabetes mellitus without complications; E66.01 Morbid (severe) obesity due to excess calories; M06.9 Rheumatoid arthritis, unspecified; K21.9 Gastro-esophageal reflux disease without esophagitis; Z79.899 Other long term (current) drug therapy; Z90.710 Acquired absence of both cervix and uterus; E89.0 Postprocedural hypothyroidism; Z86.73 Personal history of transient ischemic attack (TIA), and cerebral infarction without residual deficits; Z98.84 Bariatric surgery status; Z68.43 Body mass index [BMI] 50.0-59.9, adult
CPT/HCPCS: 88305; 45378; 43239; J2001; J2704

== ENCOUNTER → 2020-11-15 | Outpatient (CLI) | payer MEDICAID, OTHER ==
[2020-11-15 10:49] VITALS: BP 128/83; PULSE 109; RESP 18; TEMP 98.6
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
== END | disposition home or self-care (01) ==
LOC: WWCWWP 10:27
PROVIDERS: ATTEND Surgery
DX: Z53.9 Procedure and treatment not carried out, unspecified reason (principal)

== ENCOUNTER → 2020-11-24 | Outpatient (CLI) | payer MEDICAID ==
--- NOTE | 2020-11-24 09:11 | USB ---
Reason for exam: clinical finding. History: Patient has history of endometrial cancer at age 33. Indicated problem(s): pain in both breasts. Physical Findings: Nurse Summary: Patient complains of bilateral breast pain x 3 years, patient declined breast exam, states just had one by Dr. Garcia (nurse mj). US Breast Limited BILAT Technologist: Giuliana Galindo Right limited breast ultrasound including focal area of concern, retroareolar and axilla demonstrates no cystic or solid lesion seen. Left limited breast ultrasound including focal area of concern, retroareolar and axilla demonstrates no cystic or solid lesion seen. Scanned 3-9 o'clock on both sides. These results were verbally communicated with the patient and result sheet given to the patient on 11/24/20. ASSESSMENT: Negative, BI-RAD 1 RECOMMENDATION: Return to routine screening mammogram schedule for both breasts. Back on schedule for October 2021. Manage on a clinical basis with regard to inferior breast pain.
== END | disposition home or self-care (01) ==
LOC: RADUSWWP 07:05
PROVIDERS: ATTEND Surgery
DX: N64.4 Mastodynia (principal)

== ENCOUNTER → 2020-12-06 | Outpatient (CLI) | payer MEDICAID ==
[2020-12-06 19:12] LABS: Luteinizing Hormone 11.4 mIU/mL
[2020-12-06 19:13] LABS: Estradiol 31.9 pg/mL; Follicle Stimulating Hormone 19.6 mIU/mL
== END | disposition home or self-care (01) ==
LOC: LABWHC1 12:19
PROVIDERS: ATTEND Surgery
DX: N95.9 Unspecified menopausal and perimenopausal disorder (principal)
CPT/HCPCS: 36415; 82670; 83001; 83002; 84144; 84403

== ENCOUNTER → 2020-12-16 | Outpatient (CLI) | payer MEDICAID ==
[2020-12-16 08:57] VITALS: BP 129/83; PULSE 108; RESP 18; TEMP 98.6
--- NOTE | 2020-12-16 09:51 | P.PCN ---
Date of Procedure: 12/16/20 Preoperative Diagnosis: Skin lesion left posterior back at brought line Postoperative Diagnosis: Same Procedure(s) Performed: Wide excision skin lesion left posterior back about line Anesthesia: local Surgeon: Malaika Garcia Pathology: other (Skin lesion) Condition: stable Disposition: same day Indications for Procedure: Dark nevus scaling left posterior back about Operative Findings: Dark skin nevus Description of Procedure: Area of concern left back was prepped using ChloraPrep. 1% lidocaine was used to anesthetize the area of concern. Wide excision was performed. Skin was closed using a nylon suture. The excision was 1.5 cm in size. Patient tolerated procedure in stable condition. Specimen sent to pathology. Patient will follow-up next week.
== END | disposition home or self-care (01) ==
LOC: WWCWWP 08:23
PROVIDERS: ATTEND Surgery
DX: L82.1 Other seborrheic keratosis (principal)
CPT/HCPCS: 88305

== ENCOUNTER → 2020-12-24 | Outpatient (CLI) | payer MEDICAID ==
[2020-12-24 11:19] VITALS: BP 144/99; PULSE 97; RESP 18; TEMP 98.2
--- NOTE | 2021-01-06 08:42 | P.PN ---
Progress Note - Text Progress Note Date: 12/24/20 The patient returned postoperative from excision of lesion on her back. This revealed hyperplastic hyperkeratotic pigmented seborrheic keratosis. Incision was clean and dry. Sutures removed. The patient will follow-up for routine mammographic evaluation. Additionally should be noted she had bilateral breast ultrasounds done on these were felt to be benign in recommendation is for routine screening mammogram October 2021. Additionally should be noted that the patient had an FSH, LH, and estradiol and progesterone level performed. FSH was 19.6, leutenizing hormone 11.4, estradiol 31.9, testosterone 16, progesterone less than 0.2. Physical exam: Incision clean and dry Impression: 1. Benign skin lesion; back sutures removed 2. Ultrasound bilateral breast benign 3. Hormone levels reviewed Plan: 1. Repeat bilateral mammogram October 2021 2. Follow-up sooner any questions or concerns 3. Patient is felt to be most likely postmenopausal. She will follow with primary care doctor regarding any questions related to this cc Dr. Augustine Ballesteros
== END | disposition home or self-care (01) ==
LOC: WWCWWP 10:59
PROVIDERS: ATTEND Surgery
DX: L82.1 Other seborrheic keratosis (principal); Z98.890 Other specified postprocedural states

== ENCOUNTER 2021-01-18 10:32 | Emergency (ER) | payer MEDICAID, OTHER ==
[2021-01-18 11:48] VITALS: TEMP 99.5
--- NOTE | 2021-01-18 12:49 | XR ---
EXAMINATION TYPE: XR chest 2V DATE OF EXAM: 01/18/2021 COMPARISON: June 09, 2016 HISTORY: Shortness of breath TECHNIQUE: Frontal and lateral views of the chest are obtained. FINDINGS: Scattered senescent parenchymal changes noted. Hyperinflation compatible with COPD. Scattered infiltrates throughout both lung [place] are suspicious for underlying pneumonia. Heart size is stable. Mediastinal structures are stable and grossly unremarkable. No evidence for hilar prominence. Degenerative changes dorsal spine. IMPRESSION: 1. Scattered infiltrates throughout both lung [place] are suspicious for underlying pneumonia.
[2021-01-18] MEDS ORDERED: guaiFENesin SYRUP 100MG/5ML 200 MG/10 ML CUP PO PRN (14:28)
[2021-01-18] MEDS ORDERED: ONDANSETRON 4 MG/2 ML VIAL IVP STA ×2 (14:28→16:54)
[2021-01-18] MEDS ORDERED: SODIUM CHLORIDE 0.9% 1,000 ML IV ONE (14:28)
[2021-01-18 14:37] LABS: Albumin 3.9 g/dL (3.5-5.0); Calcium 8.6 mg/dL (8.4-10.2); Potassium 3.9 mmol/L (3.5-5.1); Total Bilirubin 0.6 mg/dL (0.2-1.3); Total Protein 7.7 g/dL (6.3-8.2)
[2021-01-18 14:40] LABS: Prothrombin Time 10.5 sec (9.0-12.0)
[2021-01-18 14:41] LABS: Partial Thromboplastin Time 26.3 sec (22.0-30.0)
--- NOTE | 2021-01-18 14:59 | ED ---
SOB HPI - General Chief Complaint: Shortness of Breath Stated Complaint: covid exposure/fatigue Time Seen by Provider: 01/18/21 14:06 Source: patient Mode of arrival: wheelchair Limitations: no limitations - History of Present Illness Initial Comments: Is a 50-year-old female with a history of hypertension, diet-controlled diabetes, obesity who presents emergent department for cough, body aches, shortness of breath, nausea, vomiting. She states her symptoms been going on for the last 3 days. She does have sick contacts at home who are also positive for Covid including her and sons. She states she feels a little bit short of breath as well. She came in today because she was hoping to get a monoclonal antibody infusion. She denies any diarrhea. States that she just has some generalized fatigue and she has some lightheadedness when she walks. Otherwise denies any other acute complaints. - Related Data Home Medications Medication Instructions Recorded Confirmed Ergocalciferol [Vitamin D2 50,000 unit PO MOTUWETH 05/30/15 12/24/20 (DRISDOL)] Levothyroxine Sodium [Synthroid] 600 mcg PO QAM 03/20/18 12/24/20 atenoloL [Tenormin] 50 mg PO DAILY 03/20/18 12/24/20 lisinopriL [Zestril] 10 mg PO DAILY 03/20/18 12/24/20 traMADol HCl [Ultram] 50 mg PO Q6HR PRN 03/20/18 12/24/20 Atorvastatin [Lipitor] 40 mg PO HS 10/18/20 12/24/20 Glimepiride [Amaryl] 0.5 mg PO [id number] 12/24/20 12/24/20 Previous Rx's Medication Instructions Recorded Acetaminophen Tab [Tylenol] 650 mg PO Q6HR PRN tab 03/23/18 Dexamethasone 6 mg PO DAILY #5 tablet 01/18/21 Dexamethasone [Decadron] 6 mg PO DAILY #5 tablet 01/18/21 Ondansetron Odt [Zofran Odt] 4 mg PO Q8HR PRN #10 tab 01/18/21 Ondansetron Odt [Zofran Odt] 4 mg PO Q8HR PRN #10 tab 01/18/21 Allergies Allergy/AdvReac Type Severity Reaction Status Date / Time Influenza Virus Vaccines Allergy Dyspnea Verified 01/18/21 11:48 Iodinated Contrast Media Allergy Swelling Verified 01/18/21 11:48 [Iodinated Contrast Media - IV Dye] Review of Systems ROS Statement: Those systems with pertinent positive or pertinent negative responses have been documented in the HPI. ROS Other: All systems not noted in ROS Statement are negative. Past Medical History Past Medical History: Cancer, GERD/Reflux, Hypertension, Osteoarthritis (OA), Pneumonia, Rheumatoid Arthritis (RA), Thyroid Disorder Additional Past Medical History / Comment(s): bilateral RENAL CALCULI, urinary tract calculi, fungal lung infection getting better(pt stated she was told it could take 7 years to fully clear)it was due to mold in home. bronchitis and p neumonia's which pt state are also due to mold in her home-she since has moved, respiratory failure which pt states is due to aspiration with surgery, thyroid cancer with L lobe removed, oaviran(not sure which one was remove)uterine cancer with hysterectomy sx and oral chemo, fibromyalgia, chronic backpain, hypothryroidism, varicose veins bilaterally, UTIs,c-diff 2006, vitamin D deficiency, hemorrhoids, sinusitis, duodenal polyps, anemia-past iron infusion and blood transfusion, gestational diabetes, past [place] Palsey due to shingles- affected rt side of face.(pt stated she has reoccuring bells palsy-when she is under stress but symptoms clear when no longer stressed)) History of Any Multi-Drug Resistant Organisms: C-DIFF Date of last positivie culture/infection: 2006 per pt MDRO Source:: stool Past Surgical History: Ablation, Bariatric Surgery, Cholecystectomy, Hysterectomy, Tonsillectomy, Tubal Ligation Additional Past Surgical History / Comment(s): Multiple uterine biopsies, L side thyroid bx, Left side thyroid removed 2009, , lap banding with lap band removed and gastric mesh then gastric sleeve, ESWLs and some kidney stones surgically removed-basketing, ureteroscopy, cystoscopies with stents, colonoscopy, EGD, uterus and one ovary removed, Past Anesthesia/Blood Transfusion Reactions: No Reported Reaction Additional Past Anesthesia/Blood Transfusion Reaction / Comment(s): Hx of aspiration with intubated. Past Psychological History: Anxiety Smoking Status: Never smoker Past Alcohol Use History: None Reported Past Drug Use History: None Reported - Past Family History Father History Unknown: Yes Family Medical History: Cancer Additional Family Medical History / Comment(s): COLON/STOMACH CANCER- of at age 63 yrs. Mother Family Medical History: Asthma, Cancer, CVA/TIA, Diabetes Mellitus, Myocardial Infarction ([place]) Additional Family Medical History / Comment(s): HEART PROBLEMS, CVA, ovarain cancer. maternal grandmother had strokes, and grandfather had dm General Exam - General Exam Comments Initial Comments: Constitutional: Awake alert patient appears uncomfortable Head: Normocephalic atraumatic Eyes: no conjunctival injection No scleral icterus EOMI Neck: No JVD Supple Heart: Tachycardia normal S1-S2 no murmurs Lungs: Clear to auscultation bilaterally No wheezing No rales Abdomen: Soft nondistended nontender Extremities: Non edematous DP pulses intact Radial pulses intact Neuro: A&Ox3 No focal neurologic deficits Psych: Appropriate mood and affect Limitations: no limitations Course Vital Signs 01/18/21 01/18/21 01/18/21 11:45 14:36 15:32 Temperature 99.5 F Pulse Rate 128 H 111 H Respiratory 22 18 22 Rate Blood Pressure 123/80 127/87 O2 Sat by Pulse 95 92 L Oximetry 01/18/21 01/18/21 01/18/21 17:15 18:41 18:46 Temperature 99.5 F Pulse Rate 109 H 104 H 104 H Respiratory 18 22 22 Rate Blood Pressure 128/87 128/87 O2 Sat by Pulse 95 92 L 92 L Oximetry - Reevaluation(s) Reevaluation #1: EKG showing sinus tachycardia with a rate of 125. There is no abnormal ST segment changes or T-wave inversions. QTC is 453. Other intervals are normal. No ectopy. 01/18/21 15:34 Medical Decision Making - Medical Decision Making This 50-year-old female who presents emergency department for nausea vomiting fatigue, mild cough and shortness of breath. Patient is positive. She does have bilateral infiltrates. Her oxygen saturation seemed to stay around 95%. It would occasionally dipped to 93 or 92% however would rapidly go back up to 95. The patient was given some fluids and antiemetics with improvement in her symptoms. I had along discussion with the patient about keeping her in the hospital versus sending her home after monoclonal antibody infusion. The patient states that she would prefer to have the mild, antibody infusion and also be started on steroids. I gave her a dose of the steroids and the myoclo cande antibody here. The patient was given some more fluids for her tachycardia. The patient states that she is on atenolol and has not been able to take it because of the vomiting and I suspect the tachycardia to be from this. Patient is going to be discharged to home. She has family at home and can watch her. She is given a pickup a pulse oximeter from [employer]. I told her to return promptly to the emergency Department if she has worsening shortness of breath or she notices any hypoxia at home. All questions were answered. - Lab Data Result diagrams: 01/18/21 14:02 Lab Results 01/18/21 01/18/21 01/18/21 Range/Units 11:51 14:02 14:02 PT 10.5 (9.0-12.0) sec INR 1.0 (<1.2) APTT 26.3 (22.0-30.0) sec Sodium 134 L (137-145) mmol/L Potassium 3.9 (3.5-5.1) mmol/L Chloride 100 (98-107) mmol/L Carbon Dioxide 22 (22-30) mmol/L Anion Gap 12 mmol/L BUN 12 (7-17) mg/dL Creatinine 0.90 (0.52-1.04) mg/dL Est GFR (CKD-EPI)AfAm 86 (>60 ml/min/1.73 sqM) Est GFR (CKD-EPI)NonAf 75 (>60 ml/min/1.73 sqM) Glucose 188 H (74-99) mg/dL Calcium 8.6 (8.4-10.2) mg/dL Total Bilirubin 0.6 (0.2-1.3) mg/dL AST 41 H (14-36) U/L ALT 33 (4-34) U/L Alkaline Phosphatase 84 (38-126) U/L Troponin I (0.000-0.034) ng/mL Total Protein 7.7 (6.3-8.2) g/dL Albumin 3.9 (3.5-5.0) g/dL Urine Color Urine Appearance (Clear) Urine pH (5.0-8.0) Ur Specific [place] (1.001-1.035) Urine Protein (Negative) Urine Glucose (UA) (Negative) Urine Ketones (Negative) Urine Blood (Negative) Urine Nitrite (Negative) Urine Bilirubin (Negative) Urine Urobilinogen (<2.0) mg/dL Ur Leukocyte Esterase (Negative) Urine RBC (0-5) /hpf Urine WBC (0-5) /hpf Ur Squamous Epith Cells (0-4) /hpf Amorphous Sediment (None) /hpf Urine Bacteria (None) /hpf Urine Mucus (None) /hpf Coronavirus (PCR) Detected A (Not Detectd) 01/18/21 01/18/21 Range/Units 14:02 14:21 PT (9.0-12.0) sec INR (<1.2) APTT (22.0-30.0) sec Sodium (137-145) mmol/L Potassium (3.5-5.1) mmol/L Chloride (98-107) mmol/L Carbon Dioxide (22-30) mmol/L Anion Gap mmol/L BUN (7-17) mg/dL Creatinine (0.52-1.04) mg/dL Est GFR (CKD-EPI)AfAm (>60 ml/min/1.73 sqM) Est GFR (CKD-EPI)NonAf (>60 ml/min/1.73 sqM) Glucose (74-99) mg/dL Calcium (8.4-10.2) mg/dL Total Bilirubin (0.2-1.3) mg/dL AST (14-36) U/L ALT (4-34) U/L Alkaline Phosphatase (38-126) U/L Troponin I <0.012 (0.000-0.034) ng/mL Total Protein (6.3-8.2) g/dL Albumin (3.5-5.0) g/dL Urine Color Yellow Urine Appearance Turbid H (Clear) Urine pH 6.0 (5.0-8.0) Ur Specific [place] 1.019 (1.001-1.035) Urine Protein 1+ H (Negative) Urine Glucose (UA) Negative (Negative) Urine Ketones Trace H (Negative) Urine Blood Trace H (Negative) Urine Nitrite Negative (Negative) Urine Bilirubin Negative (Negative) Urine Urobilinogen <2.0 (<2.0) mg/dL Ur Leukocyte Esterase Large H (Negative) Urine RBC 2 (0-5) /hpf Urine WBC 71 H (0-5) /hpf Ur Squamous Epith Cells 42 H (0-4) /hpf Amorphous Sediment Rare H (None) /hpf Urine Bacteria Many H (None) /hpf Urine Mucus Many H (None) /hpf Coronavirus (PCR) (Not Detectd) Disposition Clinical Impression: Pneumonia due to COVID-19 virus Disposition: HOME SELF-CARE Condition: Serious Instructions (If sedation given, give patient instructions): Coronavirus Disease 2019 (COVID-19) Prescriptions: Dexamethasone [Decadron] 6 mg PO DAILY #5 tablet Dexamethasone 6 mg PO DAILY #5 tablet Ondansetron Odt [Zofran Odt] 4 mg PO Q8HR PRN #10 tab PRN Reason: Nausea Ondansetron Odt [Zofran Odt] 4 mg PO Q8HR PRN #10 tab PRN Reason: Nausea Is patient prescribed a controlled substance at d/c from ED?: No Referrals: Augustine Ballesteros MD [Primary Care Provider] - 1-2 days
[2021-01-18] MEDS ORDERED: DEXAMETHASONE SOD PHOSPHATE 10 MG/ML 1 ML VIAL IV STA (15:51)
[2021-01-18 15:52] LABS: Amorphous Sediment,Urine Rare /hpf; Appearance,Urine Turbid (Clear); Bacteria,Urine Many /hpf; Bilirubin,Urine Negative (Negative); Blood,Urine Trace (Negative); Color,Urine Yellow; Glucose,Urine (UA) Negative (Negative); Ketones,Urine Trace (Negative); Leukocyte Esterase,Urine Large (Negative); Mucus,Urine Many /hpf; Nitrite,Urine Negative (Negative); Protein,Urine 1+ (Negative); RBC,Urine 2 /hpf (0-5); Specific Gravity,Urine 1.019 (1.001-1.035); Squamous Epithelial Cell,Urine 42 /hpf (0-4); Urobilinogen,Urine <2.0 mg/dL (<2.0); WBC,Urine 71 /hpf (0-5)
[2021-01-18] MEDS ORDERED: BAMLANIVIMAB (EUA) 700 MG, ETESEVIMAB (EUA) 1,400 MG in SODIUM CHLORIDE 0.9% 50 ML IVPB ONE (16:30)
[2021-01-18] MEDS ORDERED: ACETAMINOPHEN TAB 325 MG TAB PO STA (16:54)
[2021-01-18] MEDS ORDERED: SODIUM CHLORIDE 0.9% 50 ML IVPB ONE (17:30)
[2021-01-18 18:42] VITALS: BP 128/87; PULSE 104; RESP 22
== END 2021-01-18 18:51 | disposition home or self-care (01) ==
LOC: EC 10:32
DX: U07.1 COVID-19 (principal); J12.82 Pneumonia due to coronavirus disease 2019; E11.9 Type 2 diabetes mellitus without complications; E03.9 Hypothyroidism, unspecified; I10 Essential (primary) hypertension; K21.9 Gastro-esophageal reflux disease without esophagitis; E66.9 Obesity, unspecified; Z68.43 Body mass index [BMI] 50.0-59.9, adult; Z79.890 Hormone replacement therapy; Z79.899 Other long term (current) drug therapy; Z79.84 Long term (current) use of oral hypoglycemic drugs; Z88.7 Allergy status to serum and vaccine; Z91.041 Radiographic dye allergy status; Z85.850 Personal history of malignant neoplasm of thyroid; Z90.710 Acquired absence of both cervix and uterus; Z90.721 Acquired absence of ovaries, unilateral; Z98.84 Bariatric surgery status
CPT/HCPCS: 99285; 96365; 96361; 36415; 93005; 80053; 84484; 85610; 85730; 81001; 87086; 87077; 87186; 87635; 71046; 96375 ×2; 96376; J1100; J2405; Q0245

== ENCOUNTER → 2023-01-26 | Outpatient (CLI) | payer OTHER ==
--- NOTE | 2023-01-26 08:44 | MM ---
Reason for Exam: Screening (asymptomatic). Last mammogram was performed 2 year(s) and 3 month(s) ago. Patient History: Menarche at age 9. First Full-Term at age 29. Late child-bearing (after 29). Left ovary removed at age 33. Hysterectomy at age 33. Patient has history of breast feeding. Risk Values: Ernestina 5 year model risk: 1.7%. NCI Lifetime model risk: 12.6%. Prior Study Comparison: 01/09/2012 Bilateral Diagnostic Mammogram, [facility]. 07/20/2015 Bilateral Screening Mammogram, [facility]. 10/20/2020 Bilateral Screening Mammogram, [facility]. Tissue Density: There are scattered fibroglandular densities. Findings: Analyzed By CAD. There is no suspicious group of microcalcifications or new suspicious mass in either breast. Overall Assessment: Negative, BI-RAD 1 Management: Screening Mammogram of both breasts in 1 year. A clinical breast exam by your physician is recommended on an annual basis and results should be correlated with mammographic findings. [facility] will attempt to contact patient to return for supplemental views and ultrasound if indicated. Electronically signed and approved by: Tyler Campbell DO
== END | disposition home or self-care (01) ==
LOC: RADMAMWWP 07:11
PROVIDERS: ATTEND Family Medicine
DX: Z12.31 Encounter for screening mammogram for malignant neoplasm of breast (principal)
CPT/HCPCS: 77063; 77067

== ENCOUNTER → 2023-08-21 | Outpatient (CLI) | payer OTHER ==
--- NOTE | 2023-08-21 13:27 | XR ---
EXAMINATION TYPE: XR chest 2V DATE OF EXAM: 08/21/2023 1:20 PM CLINICAL INDICATION:Female, 52 years old with history of J01.90 Acute sinusitis; [facility] COMPARISON: 01/18/2021 TECHNIQUE: XR chest 2V Frontal and lateral views of the chest. FINDINGS: Lungs/Pleura: There is no evidence of pleural effusion, focal consolidation, or pneumothorax. Pulmonary vascularity: Unremarkable. Heart/mediastinum: Cardiomediastinal silhouette is unremarkable. Musculoskeletal: No acute osseous pathology. IMPRESSION: No acute cardiopulmonary disease/process.
== END | disposition home or self-care (01) ==
LOC: RADXRMAIN 12:50
PROVIDERS: ATTEND Nurse Practitioner Family
DX: J01.90 Acute sinusitis, unspecified (principal)
CPT/HCPCS: 71046

== ENCOUNTER → 2023-09-25 | Outpatient (CLI) | payer OTHER ==
[2023-09-25 14:30] LABS: Partial Thromboplastin Time 23.5 sec (22.0-30.0); Prothrombin Time 10.7 sec (10.0-12.5)
[2023-09-25 18:24] LABS: Basophils # (A) 0.08 X 10*3/uL (0.00-0.10); Basophils % (A) 0.9 %; Eosinophils # (A) 0.33 X 10*3/uL (0.04-0.35); Eosinophils % (A) 3.6 %; HCT 45.7 % (37.2-46.3); HGB 15.2 g/dL (12.0-15.0); Lymphocytes # (A) 2.69 X 10*3/uL (0.90-5.00); Lymphocytes % (A) 29.1 %; MCH 29.5 pg (27.0-32.0); MCHC 33.3 g/dL (32.0-37.0); MCV 88.7 FL (80.0-97.0); Mean Platelet Volume 11.5 FL (9.5-12.2); Monocytes # (A) 0.49 X 10*3/uL (0.20-1.00); Monocytes % (A) 5.3 %; NRBC Per 100 WBC 0 X 10*3/uL (0.00-0.01); Neutrophils # (A) 5.63 X 10*3/uL (1.80-7.70); Neutrophils % (A) 60.8 %; Platelet Count 268 X 10*3/uL (140-440); RBC 5.15 X 10*6/uL (4.10-5.20); RDW 12.9 % (11.5-14.5); WBC 9.25 X 10*3/uL (4.50-10.00)
[2023-09-25 21:03] LABS: Blood Urea Nitrogen 16.2 mg/dL (9.0-27.0); Chol/HDL Ratio 4.54 Ratio; Glucose 299 mg/dL (70-110); LDL Cholesterol,Calculated 107.2 mg/dL (0.0-131.0)
[2023-09-25 21:04] LABS: ALT 29 U/L (8-44); AST 16 U/L (13-35); Albumin/Globulin Ratio 1.14 Ratio (1.60-3.17); Alkaline Phosphatase 84 U/L (41-126); Calcium 9.6 mg/dL (8.7-10.3); Carbon Dioxide 20.6 mmol/L (21.6-31.8); Chloride 99 mmol/L (96-109); Globulin 3.5 g/dL (1.6-3.3); Potassium 4.7 mmol/L (3.5-5.5); Sodium 135 mmol/L (135-145); Total Bilirubin 0.5 mg/dL (0.3-1.2); Total Protein 7.5 g/dL (6.2-8.2)
[2023-09-26 10:19] LABS: Prothrombin 20210A Mutation Negative
[2023-09-26 19:12] LABS: Vitamin D, 1, 25-Dihydroxy 90 pg/mL (20 - 79)
== END | disposition home or self-care (01) ==
LOC: LABWHC1 11:29
PROVIDERS: ATTEND Family Medicine
DX: E11.40 Type 2 diabetes mellitus with diabetic neuropathy, unspecified (principal); Z83.2 Family history of diseases of the blood and blood-forming organs and certain disorders involving the immune mechanism
CPT/HCPCS: 36415; 80053; 80061; 81240; 81241; 81291; 82652; 83021; 83090; 84439; 84443; 85025; 85610; 85730

== ENCOUNTER → 2023-10-24 | Outpatient (CLI) | payer OTHER ==
[2023-10-24 15:31] LABS: ALT 23 U/L (8-44); AST 16 U/L (13-35); Albumin/Globulin Ratio 1.18 Ratio (1.60-3.17); Alkaline Phosphatase 88 U/L (41-126); BUN/Creat Ratio 21.11 Ratio (12.00-20.00); Calcium 9.9 mg/dL (8.7-10.3); Carbon Dioxide 25.4 mmol/L (21.6-31.8); Chloride 100 mmol/L (96-109); Globulin 3.4 g/dL (1.6-3.3); Glucose 262 mg/dL (70-110); Potassium 4.5 mmol/L (3.5-5.5); Sodium 139 mmol/L (135-145); Total Bilirubin 0.4 mg/dL (0.3-1.2); Total Protein 7.4 g/dL (6.2-8.2)
--- NOTE | 2023-10-24 18:41 | US ---
EXAMINATION TYPE: US abdomen complete DATE OF EXAM: 10/24/2023 COMPARISON: US Liver 2018 CLINICAL INDICATION: Female, 52 years old with history of R10.13 EPIGASTRIC PAIN; TECHNIQUE: Multiple sonographic images of the abdomen are obtained. FINDINGS: EXAM MEASUREMENTS: Liver Length: 24.2 cm Gallbladder Wall: Surgically absent CBD: 0.72 cm Spleen: 10.6 x 11.6 x 5.4 cm Right Kidney: 10.3 x 4.5 x 5.3 cm Left Kidney: 10.8 x 6.3 x 4.9 cm LAND ACQUISITION MANAGER NOTES: Suboptimal study due to large patient body habitus Pancreas: Obscured by bowel gas Liver: Increased attenuation, decreased visualization of vessels suggestive of fatty infiltrate Gallbladder: Surgically absent CBD: wnl Spleen: wnl Right Kidney: No hydronephrosis or masses seen Left Kidney: Lobulated contour Upper IVC: Obscured by overlying bowel gas Abd Aorta: Mostly obscured by overlying bowel gas IMPRESSION: 1. Moderate fatty infiltration of liver. Hepatomegaly is present.
== END | disposition home or self-care (01) ==
LOC: RADUSWWP 07:33
PROVIDERS: ATTEND Family Medicine
DX: K76.0 Fatty (change of) liver, not elsewhere classified (principal); R16.0 Hepatomegaly, not elsewhere classified; R10.13 Epigastric pain; E11.40 Type 2 diabetes mellitus with diabetic neuropathy, unspecified
CPT/HCPCS: 36415; 76700; 80053; 83036; 84439; 84443; 84481

== ENCOUNTER 2023-11-02 16:18 | Emergency (ER) | payer OTHER ==
[2023-11-02 16:31] VITALS: TEMP 98.4
--- NOTE | 2023-11-02 17:11 | ED ---
Abdominal Pain HPI - General Chief Complaint: Abdominal Pain Stated Complaint: R side abd pain Time Seen by Provider: 11/02/23 17:11 Source: patient, RN notes reviewed Mode of arrival: ambulatory Limitations: no limitations - History of Present Illness Initial Comments: Patient is a 52-year-old female presented ER with chief complaint of right-sided abdominal pain. Patient states going on since after Thanksgiving. She reports she has been seeing her PCP for this complaint and being worked up outpatient. She states her pain increased today which brought her to the ER. She reports nausea. Patient does report she has a history of kidney stones but states her pain feels different than prior stones. Denies any urinary complaints, constipation/diarrhea, chest pain, shortness of breath, fevers, chills. - Related Data Home Medications Medication Instructions Recorded Confirmed Ergocalciferol [Vitamin D2 50,000 unit PO MOTUWETH 05/30/15 12/24/20 (DRISDOL)] Levothyroxine Sodium [Synthroid] 600 mcg PO QAM 03/20/18 12/24/20 atenoloL [Tenormin] 50 mg PO DAILY 03/20/18 12/24/20 lisinopriL [Zestril] 10 mg PO DAILY 03/20/18 12/24/20 traMADol HCl [Ultram] 50 mg PO Q6HR PRN 03/20/18 12/24/20 Atorvastatin [Lipitor] 40 mg PO HS 10/18/20 12/24/20 Glimepiride [Amaryl] 0.5 mg PO [id number] 12/24/20 12/24/20 Previous Rx's Medication Instructions Recorded Acetaminophen Tab [Tylenol] 650 mg PO Q6HR PRN tab 03/23/18 Ondansetron Odt [Zofran Odt] 4 mg PO Q8HR PRN #10 tab 01/18/21 Ondansetron Odt [Zofran Odt] 4 mg PO Q8HR PRN #10 tab 01/18/21 dexAMETHasone [Decadron] 6 mg PO DAILY #5 tablet 01/18/21 dexAMETHasone [Dexamethasone] 6 mg PO DAILY #5 tablet 01/18/21 Allergies Allergy/AdvReac Type Severity Reaction Status Date / Time Influenza Virus Vaccines Allergy Dyspnea Verified 11/02/23 16:29 Iodinated Contrast Media Allergy Swelling Verified 11/02/23 16:29 [Iodinated Contrast Media - IV Dye] Review of Systems ROS Statement: Those systems with pertinent positive or pertinent negative responses have been documented in the HPI. ROS Other: All systems not noted in ROS Statement are negative. Past Medical History Past Medical History: Cancer, GERD/Reflux, Hypertension, Osteoarthritis (OA), P neumonia, Rheumatoid Arthritis (RA), Thyroid Disorder Additional Past Medical History / Comment(s): bilateral RENAL CALCULI, urinary tract calculi, fungal lung infection getting better(pt stated she was told it could take 7 years to fully clear)it was due to mold in home. bronchitis and pneumonia's which pt state are also due to mold in her home-she since has moved, respiratory failure which pt states is due to aspiration with surgery, thyroid cancer with L lobe removed, oaviran(not sure which one was remove)uterine cancer with hysterectomy sx and oral chemo, fibromyalgia, chronic backpain, hypothryroidism, varicose veins bilaterally, UTIs,c-diff 2006, vitamin D de ficiency, hemorrhoids, sinusitis, duodenal polyps, anemia-past iron infusion and blood transfusion, gestational diabetes, past [place] due to shingles- affected rt side of face.(pt stated she has reoccuring bells palsy-when she is under stress but symptoms clear when no longer stressed)) History of Any Multi-Drug Resistant Organisms: ESBL Date of last positivie culture/infection: 01/18/21 MDRO Source:: ESBL URINE Past Surgical History: Ablation, Bariatric Surgery, Cholecystectomy, Hysterectom y, Tonsillectomy, Tubal Ligation Additional Past Surgical History / Comment(s): Multiple uterine biopsies, L side thyroid bx, Left side thyroid removed 2009, , lap banding with lap band removed and gastric mesh then gastric sleeve, ESWLs and some kidney stones surgically re moved-basketing, ureteroscopy, cystoscopies with stents, colonoscopy, EGD, uterus and one ovary removed, Past Anesthesia/Blood Transfusion Reactions: No Reported Reaction Additional Past Anesthesia/Blood Transfusion Reaction / Comment(s): Hx of aspir ation with intubated. Past Psychological History: Anxiety Smoking Status: Never smoker Past Alcohol Use History: None Reported Past Drug Use History: None Reported - Past Family History Father History Unknown: Yes Family Medical History: Cancer Additional Family Medical History / Comment(s): COLON/STOMACH CANCER- of at age 63 yrs. Mother Family Medical History: Asthma, Cancer, CVA/TIA, Diabetes Mellitus, Myocardial Infarction (MA) Additional Family Medical History / Comment(s): HEART PROBLEMS, CVA, ovarain cancer. maternal grandmother had strokes, and grandfather had dm General Exam - General Exam Comments Initial Comments: Visual Physical Exam Vital signs reviewed General: Well-appearing, nontoxic, no acute distress. Head: Normocephalic, atraumatic Eyes: PERRLA, EOMI ENT: Airway patent Chest: Nonlabored breathing Skin: No visual rash, normal skin tone Neuro: Alert and oriented 3 Musculoskeletal: No gross abnormalities Limitations: no limitations General appearance: alert, in no apparent distress Head exam: Present: atraumatic, normocephalic, normal inspection Respiratory exam: Present: normal lung sounds bilaterally. Absent: respiratory distress, wheezes, rales, rhonchi, stridor Cardiovascular Exam: Present: regular rate, normal rhythm, normal heart sounds. Absent: systolic murmur, diastolic murmur, rubs, gallop, clicks GI/Abdominal exam: Present: soft, tenderness (right sided), normal bowel sounds. Absent: distended, guarding, rebound, rigid Extremities exam: Present: normal inspection, full ROM, normal capillary refill. Absent: tenderness, pedal edema, joint swelling, calf tenderness Back exam: Present: normal inspection, CVA tenderness (R) Neurological exam: Present: alert, oriented X3, CN II-XII intact Psychiatric exam: Present: normal affect, normal mood Skin exam: Present: warm, dry, intact, normal color. Absent: rash Course Vital Signs 11/02/23 11/02/23 16:26 18:08 Temperature 98.4 F Pulse Rate 82 86 Respiratory 22 16 Rate Blood Pressure 161/87 165/78 O2 Sat by Pulse 97 98 Oximetry Medical Decision Making - Medical Decision Making I performed the quick note portion of the exam. Electronically signed by Nanette Gore PA-C Was pt. sent in by a medical professional or institution (CASSID[facility] Robles, CLAY MACHINE OPERATOR, urgent care, hospital, or intermediate...) When possible be specific @ -No Did you speak to anyone other than the patient for history (EMS, parent, family, police, friend...)? What history was obtained from this source @ -No Did you review nursing and triage notes (agree or disagree)? Why? @ -I reviewed and agree with nursing and triage notes Were old charts reviewed (outside hosp., previous admission, EMS record, old EKG, old radiological studies, urgent care reports/EKG's, intermediate records)? Report findings @ -No old charts were reviewed Differential Diagnosis (chest pain, altered mental status, abdominal pain women, abdominal pain men, vaginal bleeding, weakness, fever, dyspnea, syncope, headache, dizziness, GI bleed, back pain, seizure, CVA, palpatations, mental health, musculoskeletal)? @ -Differential Abdominal Pain Women: Appendicitis, Cholecystitis, diverticulosis, ischemic bowel, pancreatitis, hepatitis, UTI, gastroenteritis, AAA, incarcerated hernia, bowel obstruction, constipation, inflammatory bowel, hepatitis, peptic ulcer disease, splenic infarction, perforated viscus, vulvitis, ovarian torsion, PID, kidney stone, placenta abruption, this is not meant to be an all-inclusive list EKG interpreted by me (3pts min.). @ -None X-rays interpreted by me (1pt min.). @ -None done CT interpreted by me (1pt min.). @ -CT abdomen and pelvis shows no acute process. U/S interpreted by me (1pt. min.). @ -None done What testing was considered but not performed or refused? (CT, X-rays, U/S, labs)? Why? @ -None What meds were considered but not given or refused? Why? @ -None Did you discuss the management of the patient with other professionals (professionals i.e. , PA, CLAY MACHINE OPERATOR, lab, RT, psych nurse, group social worker, air purifier servicer, teacher, special weapons and tactics officer, case resolution specialist)? Give summary @ -No Was smoking cessation discussed for >3mins.? @ -No Was critical care preformed (if so, how long)? @ -No Were there social determinants of health that impacted care today? How? (Homelessness, low income, unemployed, alcoholism, drug addiction, transportation, low edu. Level, literacy, decrease access to med. care, detention, rehab)? @ -No Was there de-escalation of care discussed even if they declined (Discuss DNR or withdrawal of care, Hospice)? DNR status @ -No What co-morbidities impacted this encounter? (DM, HTN, Smoking, COPD, CAD, Cancer, CVA, ARF, Chemo, Hep., AIDS, mental health diagnosis, sleep apnea, morbid obesity)? @ -Diabetes mellitus, morbid obesity Was patient admitted / discharged? Hospital course, mention meds given and route, prescriptions, significant lab abnormalities, going to OR and other pertinent info. @ -Discharge. Patient is a 52-year-old female presented ER with chief complaint of right-sided abdominal pain. Vital stable. History and physical exam were completed. Patient denies any urinary complaints, fevers, chills. Patient was in no signs of acute distress. Labs obtained in the ER significant for WBC 11, BUN 25, Cr 1.15. UA without signs of infection. CT abdomen and pelvis showed no acute process. Patient received IV fluids, Dilaudid and Zofran for pain control, with improvement. I discussed lab and imaging findings with patient. I advised her to follow-up with PCP. Patient will be started on Zofran for nausea. Return parameters were discussed. Patient will be discharged in stable condition with follow-up to PCP. Patient expressed understanding and agreement with care plan. I discussed this case with Dr. Wellington, ED attending. Undiagnosed new problem with uncertain prognosis? @ -No Drug Therapy requiring intensive monitoring for toxicity (Heparin, Nitro, I nsulin, Cardizem)? @ -No Were any procedures done? @ -No Diagnosis/symptom? @ -Abdominal pain Acute, or Chronic, or Acute on Chronic? @ -Acute Uncomplicated (without systemic symptoms) or Complicated (systemic symptoms)? @ -Uncomplicated Side effects of treatment? @ -No Exacerbation, Progression, or Severe Exacerbation? @ -No Poses a threat to life or bodily function? How? (Chest pain, [place], MA, pneumonia, PE, COPD, DKA, ARF, appy, cholecystitis, CVA, Diverticulitis, Homicidal, Suicidal, threat to staff... and all critical care pts) @ -No - Lab Data Result diagrams: 11/02/23 16:43 11/02/23 16:43 Lab Results 11/02/23 11/02/23 11/02/23 Range/Units 16:43 16:43 16:43 WBC 11.6 H (3.8-10.6) k/uL RBC 4.95 (3.80-5.40) m/uL Hgb 15.1 (11.4-16.0) gm/dL Hct 45.2 (34.0-46.0) % MCV 91.4 (80.0-100.0) fL MCH 30.4 (25.0-35.0) pg MCHC 33.3 (31.0-37.0) g/dL RDW 12.9 (11.5-15.5) % Plt Count 332 (150-450) k/uL MPV 8.1 Neutrophils % 59 % Lymphocytes % 29 % Monocytes % 5 % Eosinophils % 4 % Basophils % 1 % Neutrophils # 6.9 (1.3-7.7) k/uL Lymphocytes # 3.4 (1.0-4.8) k/uL Monocytes # 0.6 (0-1.0) k/uL Eosinophils # 0.4 (0-0.7) k/uL Basophils # 0.1 (0-0.2) k/uL Sodium 140 (137-145) mmol/L Potassium 4.4 (3.5-5.1) mmol/L Chloride 104 (98-107) mmol/L Carbon Dioxide 26 (22-30) mmol/L Anion Gap 10 mmol/L BUN 25 H (7-17) mg/dL Creatinine 1.15 H (0.52-1.04) mg/dL Est GFR (CKD-EPI)AfAm 63 (>60 ml/min/1.73 sqM) Est GFR (CKD-EPI)NonAf 55 (>60 ml/min/1.73 sqM) Glucose 272 H (74-99) mg/dL Plasma Lactic Acid Nathan (0.7-2.0) mmol/L Calcium 9.6 (8.4-10.2) mg/dL Total Bilirubin 0.5 (0.2-1.3) mg/dL AST 29 (14-36) U/L ALT 33 (4-34) U/L Alkaline Phosphatase 94 (38-126) U/L Total Protein 7.9 (6.3-8.2) g/dL Albumin 4.1 (3.5-5.0) g/dL Amylase 44 (30-110) U/L Lipase 87 (23-300) U/L Urine Color Colorless Urine Appearance Clear (Clear) Urine pH 5.5 (5.0-8.0) Ur Specific Dania 1.020 (1.001-1.035) Urine Protein Negative (Negative) Urine Glucose (UA) 3+ H (Negative) Urine Ketones Negative (Negative) Urine Blood Negative (Negative) Urine Nitrite Negative (Negative) Urine Bilirubin Negative (Negative) Urine Urobilinogen <2.0 (<2.0) mg/dL Ur Leukocyte Esterase Trace H (Negative) Urine RBC 1 (0-5) /hpf Urine WBC 4 (0-5) /hpf Ur Squamous Epith Cells 3 (0-4) /hpf Urine Bacteria Many H (None) /hpf Urine Mucus Rare H (None) /hpf 11/02/23 Range/Units 16:43 WBC (3.8-10.6) k/uL RBC (3.80-5.40) m/uL Hgb (11.4-16.0) gm/dL Hct (34.0-46.0) % MCV (80.0-100.0) fL MCH (25.0-35.0) pg MCHC (31.0-37.0) g/dL RDW (11.5-15.5) % Plt Count (150-450) k/uL MPV Neutrophils % % Lymphocytes % % Monocytes % % Eosinophils % % Basophils % % Neutrophils # (1.3-7.7) k/uL Lymphocytes # (1.0-4.8) k/uL Monocytes # (0-1.0) k/uL Eosinophils # (0-0.7) k/uL Basophils # (0-0.2) k/uL Sodium (137-145) mmol/L Potassium (3.5-5.1) mmol/L Chloride (98-107) mmol/L Carbon Dioxide (22-30) mmol/L Anion Gap mmol/L BUN (7-17) mg/dL Creatinine (0.52-1.04) mg/dL Est GFR (CKD-EPI)AfAm (>60 ml/min/1.73 sqM) Est GFR (CKD-EPI)NonAf (>60 ml/min/1.73 sqM) Glucose (74-99) mg/dL Plasma Lactic Acid Nathan 1.2 (0.7-2.0) mmol/L Calcium (8.4-10.2) mg/dL Total Bilirubin (0.2-1.3) mg/dL AST (14-36) U/L ALT (4-34) U/L Alkaline Phosphatase (38-126) U/L Total Protein (6.3-8.2) g/dL Albumin (3.5-5.0) g/dL Amylase (30-110) U/L Lipase (23-300) U/L Urine Color Urine Appearance (Clear) Urine pH (5.0-8.0) Ur Specific Dania (1.001-1.035) Urine Protein (Negative) Urine Glucose (UA) (Negative) Urine Ketones (Negative) Urine Blood (Negative) Urine Nitrite (Negative) Urine Bilirubin (Negative) Urine Urobilinogen (<2.0) mg/dL Ur Leukocyte Esterase (Negative) Urine RBC (0-5) /hpf Urine WBC (0-5) /hpf Ur Squamous Epith Cells (0-4) /hpf Urine Bacteria (None) /hpf Urine Mucus (None) /hpf - Radiology Data Radiology results: report reviewed Disposition Clinical Impression: Abdominal pain Disposition: HOME SELF-CARE Condition: Stable Instructions (If sedation given, give patient instructions): Abdominal Pain (ED) Additional Instructions: Please follow-up with primary care physician in the next 1-2 days. Return to ER for any new or worsening symptoms. Is patient prescribed a controlled substance at d/c from ED?: No Referrals: Augustine Ballesteros MD [Primary Care Provider] - 1-2 days Time of Disposition: 19:15
[2023-11-02] MEDS ORDERED: ONDANSETRON 4 MG/2 ML VIAL IVP STA (17:52)
[2023-11-02] MEDS ORDERED: SODIUM CHLORIDE 0.9% 1,000 ML IV STA (17:52)
[2023-11-02] MEDS ORDERED: HYDROmorphone 0.5 MG/0.5 ML SYRINGE IVP STA (17:52)
[2023-11-02 18:20] LABS: Basophils # (A) 0.1 k/uL (0-0.2); Basophils % (A) 1 %; Eosinophils # (A) 0.4 k/uL (0-0.7); Eosinophils % (A) 4 %; HCT 45.2 % (34.0-46.0); HGB 15.1 gm/dL (11.4-16.0); Lymphocytes # (A) 3.4 k/uL (1.0-4.8); Lymphocytes % (A) 29 %; MCH 30.4 pg (25.0-35.0); MCHC 33.3 g/dL (31.0-37.0); MCV 91.4 fL (80.0-100.0); Mean Platelet Volume 8.1; Monocytes # (A) 0.6 k/uL (0-1.0); Monocytes % (A) 5 %; Neutrophils # (A) 6.9 k/uL (1.3-7.7); Neutrophils % (A) 59 %; Platelet Count 332 k/uL (150-450); RBC 4.95 m/uL (3.80-5.40); RDW 12.9 % (11.5-15.5); WBC 11.6 k/uL (3.8-10.6)
[2023-11-02 18:21] VITALS: BP 165/78; PULSE 86; RESP 16
[2023-11-02 18:33] LABS: Appearance,Urine Clear (Clear); Bacteria,Urine Many /hpf; Bilirubin,Urine Negative (Negative); Blood,Urine Negative (Negative); Color,Urine Colorless; Glucose,Urine (UA) 3+ (Negative); Ketones,Urine Negative (Negative); Leukocyte Esterase,Urine Trace (Negative); Mucus,Urine Rare /hpf; Nitrite,Urine Negative (Negative); PH, Urine 5.5 (5.0-8.0); Protein,Urine Negative (Negative); RBC,Urine 1 /hpf (0-5); Squamous Epithelial Cell,Urine 3 /hpf (0-4); Urobilinogen,Urine <2.0 mg/dL (<2.0); WBC,Urine 4 /hpf (0-5)
[2023-11-02 18:34] LABS: ALT 33 U/L (4-34); AST 29 U/L (14-36); African American GFR (CKD) 63 (>60 ml/min/1.73 sqM); Albumin 4.1 g/dL (3.5-5.0); Alkaline Phosphatase 94 U/L (38-126); Amylase 44 U/L (30-110); Anion Gap 10 mmol/L; Blood Urea Nitrogen 25 mg/dL (7-17); Calcium 9.6 mg/dL (8.4-10.2); Carbon Dioxide 26 mmol/L (22-30); Chloride 104 mmol/L (98-107); Glucose 272 mg/dL (74-99); Lipase 87 U/L (23-300); Non-African American GFR(CKD) 55 (>60 ml/min/1.73 sqM); Potassium 4.4 mmol/L (3.5-5.1); Sodium 140 mmol/L (137-145); Total Bilirubin 0.5 mg/dL (0.2-1.3); Total Protein 7.9 g/dL (6.3-8.2)
--- NOTE | 2023-11-02 18:54 | CT ---
EXAMINATION TYPE: CT abdomen pelvis wo con DATE OF EXAM: 11/02/2023 COMPARISON: 03/20/2018 HISTORY: RT SIDE ABDOMINAL PAIN X1 MONTH CT DLP: 2633 mGycm Examination of the solid and hollow viscera is limited given the lack of contrast. FINDINGS: LUNG BASES: No evidence for nodule. No evidence for infiltrate. LIVER/GB: Gallbladder surgically absent. No space-occupying hepatic lesion. PANCREAS: No pancreatic mass identified. No inflammatory process seen. SPLEEN: No evidence for splenomegaly. No intrasplenic lesions seen. ADRENALS: No adrenal nodules identified. No evidence for thickening. KIDNEYS: No evidence for renal mass. No nephrolithiasis. No hydronephrosis. BOWEL: Changes of gastric sleeve. Fat-containing umbilical hernia noted. Nonvisualization of the appendix. N o inflammatory process right lower quadrant. No evidence of bowel obstruction. No inflammatory proces s. Lymph nodes: No evidence for adenopathy greater than 1 cm. Abdominal aorta: Atheromatous changes seen. No evidence for aneurysm. Genital organs: No significant abnormality. Other: No significant abnormality. IMPRESSION: No acute PROCESS SEEN.
[2023-11-02] MEDS ORDERED: ONDANSETRON 4 MG ODT STARTER PACK 2 TAB BTL PO STA (19:14)
== END 2023-11-02 20:23 | disposition home or self-care (01) ==
LOC: EC 16:18
DX: R10.9 Unspecified abdominal pain (principal); E11.9 Type 2 diabetes mellitus without complications; I10 Essential (primary) hypertension; E03.9 Hypothyroidism, unspecified; E66.01 Morbid (severe) obesity due to excess calories; Z79.84 Long term (current) use of oral hypoglycemic drugs; Z79.890 Hormone replacement therapy; Z79.899 Other long term (current) drug therapy; Z88.7 Allergy status to serum and vaccine; Z91.041 Radiographic dye allergy status; Z90.49 Acquired absence of other specified parts of digestive tract; Z68.43 Body mass index [BMI] 50.0-59.9, adult
CPT/HCPCS: 99284 ×2; 96374 ×2; 96375 ×2; 36415; 80053; 82150; 83605; 83690; 85025; 81001; 74176; J2405; S0119; J1170

== ENCOUNTER → 2023-11-12 | Outpatient (CLI) | payer OTHER ==
[2023-11-12 08:36] LABS: African American GFR (CKD) >90 (>60 ml/min/1.73 sqM); Blood Urea Nitrogen 23 mg/dL (7-17); Non-African American GFR(CKD) >90 (>60 ml/min/1.73 sqM)
--- NOTE | 2023-11-12 09:20 | CT ---
EXAMINATION TYPE: CT abdomen pelvis w con CT DLP: 4163.3 mGycm, Automated exposure control for dose reduction was used. DATE OF EXAM: 11/12/2023 9:08 AM COMPARISON: CT abdomen pelvis most recent from 11/02/2023. CLINICAL INDICATION:Female, 52 years old with history of R10.9 UNSPECIFIED ABDOMINAL PAIN; hernia, re nal stone TECHNIQUE: Standard CT of the abdomen and pelvis following the administration of 100 cc of Isovue 3 00 IV contrast material and oral contrast. Coronal and sagittal reformats were performed. FINDINGS: LOWER CHEST: Unremarkable ABDOMEN LIVER: Diffusely hypoattenuating parenchyma. GALLBLADDER AND BILE DUCTS: The gallbladder is surgically absent. PANCREAS: Unremarkable. SPLEEN: Unremarkable. ADRENAL GLANDS: Unremarkable. KIDNEYS AND URETERS: No evidence of hydronephrosis. There are 2 nonobstructive 2 mm calculi within th e right kidney. Kidneys enhance symmetrically. PELVIS BLADDER: Incompletely distended but grossly unremarkable. No calculi identified. REPRODUCTIVE: The uterus is surgically absent. ABDOMEN & PELVIS STOMACH AND BOWEL: Postsurgical changes from gastric sleeve. Few scattered colonic diverticula withou t surrounding inflammatory changes. The appendix is within normal limits. Enteric contrast reaches th e mid small bowel. No evidence of bowel obstruction. PERITONEUM: No evidence of pneumoperitoneum or free fluid. VASCULATURE: No evidence of aortic aneurysm. MUSCULOSKELETAL: No acute osseous abnormalities LYMPH NODES: No gross evidence for lymphadenopathy. SOFT TISSUE/ABDOMINAL WALL: Small to moderate-sized fat filled umbilical hernia. IMPRESSION: 1. No acute process. 2. Colonic diverticulosis without evidence for acute diverticulitis. 3. Nonobstructive right renal calculi. 4. Hepatic steatosis.
== END | disposition home or self-care (01) ==
LOC: RADCTMAIN 07:49
PROVIDERS: ATTEND Family Medicine
DX: K57.30 Diverticulosis of large intestine without perforation or abscess without bleeding (principal); N20.0 Calculus of kidney; K76.0 Fatty (change of) liver, not elsewhere classified; K46.9 Unspecified abdominal hernia without obstruction or gangrene
CPT/HCPCS: 82565; 84520; 74177; 36415; Q9967

== ENCOUNTER 2025-04-09 12:45 | Emergency (ER) | payer OTHER ==
--- NOTE | 2025-04-09 13:42 | ED ---
General Adult HPI - General Source: patient, RN notes reviewed Mode of arrival: wheelchair Limitations: no limitations <Binta Gregorio - Last Filed: 04/09/25 13:39> <Garland Garcia - Last Filed: 04/15/25 18:26> - General Chief complaint: Weakness Stated complaint: DEREK Time Seen by Provider: 04/09/25 13:40 - History of Present Illness Initial comments: Quick [id number] female presenting for right flank pain x 2 weeks. States 2 weeks ago she began to have dysuria which has progressively worsene she does h ave a history of kidney stones. Also reports she has been very short of breath with a cough. (Binta Gregorio) 54-year-old female presenting with chief complaint of UTI-like symptoms. Patient is having burning urgency and frequency. She states that this has been ongoing for a month. She is having bilateral lower back pain. States that she feels very weak and short of breath. She is concerned that she is going septic. She admits to sweating, does not know if she has had a fever. Admits to nausea and vomiting. (Garland Garcia) - Related Data Home Medications Medication Instructions Recorded Confirmed Ergocalciferol [Vitamin D2 50,000 unit PO MOTHSA 05/30/15 04/09/25 (DRISDOL)] Levothyroxine Sodium [Synthroid] 600 mcg PO DAILY 03/20/18 04/09/25 atenoloL [Tenormin] 50 mg PO DAILY 03/20/18 04/09/25 traMADol HCl [Ultram] 50 mg PO Q6HR PRN 03/20/18 04/09/25 Atorvastatin [Lipitor] 40 mg PO DAILY 10/18/20 04/09/25 Previous Rx's Medication Instructions Recorded Cephalexin [Keflex] 500 mg PO Q6HR 14 Days #56 cap 04/09/25 Ondansetron Odt [Zofran Odt] 4 mg PO Q8HR PRN #20 tab 04/09/25 Allergies Allergy/AdvReac Type Severity Reaction Status Date / Time Influenza Virus Vaccines Allergy Dyspnea Verified 04/09/25 19:07 Iodinated Contrast Media Allergy Swelling Verified 04/09/25 19:07 [Iodinated Contrast Media - IV Dye] Review of Systems ROS Other: All systems not noted in ROS Statement are negative. <Binta Gregorio - Last Filed: 04/09/25 13:39> ROS Other: All systems not noted in ROS Statement are negative. <Garland Garcia - Last Filed: 04/15/25 18:26> ROS Statement: Those systems with pertinent positive or pertinent negative responses have been documented in the HPI. Past Medical History Past Medical History: Cancer, GERD/Reflux, Hypertension, Osteoarthritis (OA), Pneumonia, Rheumatoid Arthritis (RA), Thyroid Disorder Additional Past Medical History / Comment(s): bilateral RENAL CALCULI, urinary tract calculi, fungal lung infection getting better(pt stated she was told it could take 7 years to fully clear)it was due to mold in home. bronchitis and pneumonia's which pt state are also due to mold in her home-she since has moved, respiratory failure which pt states is due to aspiration with surgery, thyroid cancer with L lobe removed, oaviran(not sure which one was remove)uterine cancer with hysterectomy sx and oral chemo, fibromyalgia, chronic backpain, hypothryroidism, varicose veins bilaterally, UTIs,c-diff 2006, vitamin D deficiency, hemorrhoids, sinusitis, duodenal polyps, anemia-past iron infusion and blood transfusion, gestational diabetes, past [place] due to shingles- affected rt side of face.(pt stated she has reoccuring bells palsy-when she is under stress but symptoms clear when no longer stressed)) History of Any Multi-Drug Resistant Organisms: ESBL Date of last positivie culture/infection: 01/18/21 MDRO Source:: ESBL URINE Past Surgical History: Ablation, Bariatric Surgery, Cholecystectomy, Hysterectomy, Tonsillectomy, Tubal Ligation Additional Past Surgical History / Comment(s): Multiple uterine biopsies, L side thyroid bx, Left side thyroid removed 2009, , lap banding with lap band removed and gastric mesh then gastric sleeve, ESWLs and some kidney stones surgically removed-basketing, ureteroscopy, cystoscopies with stents, colonoscopy, EGD, uterus and one ovary removed, Past Anesthesia/Blood Transfusion Reactions: No Reported Reaction Additional Past Anesthesia/Blood Transfusion Reaction / Comment(s): Hx of aspiration with intubated. Past Psychological History: Anxiety Smoking Status: Never smoker Past Alcohol Use History: None Reported Past Drug Use History: None Reported - Past Family History Father History Unknown: Yes Family Medical History: Cancer Additional Family Medical History / Comment(s): COLON/STOMACH CANCER- of at age 63 yrs. Mother Family Medical History: Asthma, Cancer, CVA/TIA, Diabetes Mellitus, Myocardial Infarction ([place]) Additional Family Medical History / Comment(s): HEART PROBLEMS, CVA, ovarain cancer. maternal grandmother had strokes, and grandfather had dm <GregorioBinta - Last Filed: 04/09/25 13:39> General Exam Limitations: no limitations <Romana Gregoriona - Last Filed: 04/09/25 13:39> Limitations: no limitations General appearance: alert, in no apparent distress Head exam: Present: atraumatic, normocephalic, normal inspection Eye exam: Present: normal appearance, EOMI Neck exam: Present: normal inspection. Absent: meningismus Respiratory exam: Present: normal lung sounds bilaterally. Absent: respiratory distress, wheezes, rales, rhonchi, stridor Cardiovascular Exam: Present: regular rate, normal rhythm, normal heart sounds. Absent: systolic murmur, diastolic murmur, rubs, gallop, clicks Neurological exam: Present: alert, oriented X3 Psychiatric exam: Present: normal affect, normal mood Skin exam: Present: warm, dry, normal color <Garland Garcia - Last Filed: 04/15/25 18:26> - General Exam Comments Initial Comments: Visual Physical Exam Vital signs reviewed General: Well-appearing, nontoxic, no acute distress. Head: Normocephalic, atraumatic Eyes: PERRLA, EOMI ENT: Airway patent Chest: Nonlabored breathing Skin: No visual rash, normal skin tone Neuro: Alert and oriented 3 Musculoskeletal: No gross abnormalities (Binta Gregorio) Course Vital Signs 04/09/25 04/09/25 04/09/25 13:01 18:07 19:31 Temperature 98.4 F 99.6 F Pulse Rate 116 H 109 H 102 H Respiratory 16 18 18 Rate Blood Pressure 142/98 155/92 O2 Sat by Pulse 94 L 97 96 Oximetry Medical Decision Making <Binta Gregorio - Last Filed: 04/09/25 13:39> - Lab Data Result diagrams: 04/09/25 14:17 04/09/25 14:17 <Garland Garcia - Last Filed: 04/15/25 18:26> - Medical Decision Making I completed the quick note portion of this chart signed Binta Gregorio PA-C ( Binta Gregorio) Was pt. sent in by a medical professional or institution (, PA, MAIL DISTRIBUTION SCHEME EXAMINER, urgent care, hospital, or fdc...) When possible be specific @ -No Did you speak to anyone other than the patient for history (EMS, parent, family, police, friend...)? What history was obtained from this source @ -No Did you review nursing and triage notes (agree or disagree)? Why? @ -I reviewed and agree with nursing and triage notes Were old charts reviewed (outside hosp., previous admission, EMS record, old EKG, old radiological studies, urgent care reports/EKG's, fdc records)? Report findings @ -No old charts were reviewed Differential Diagnosis (chest pain, altered mental status, abdominal pain women, abdominal pain men, vaginal bleeding, weakness, fever, dyspnea, syncope, headache, dizziness, GI bleed, back pain, seizure, CVA, palpatations, mental health, musculoskeletal)? @ -Differential includes UTI, pyelonephritis, kidney stone, not an all- inclusive list EKG interpreted by me (3pts min.). @ -As above X-rays interpreted by me (1pt min.). @ -Chest x-ray shows no acute cardiopulmonary disease/process CT interpreted by me (1pt min.). @ -CT shows no evidence for obstructive uropathy. Nonobstructing right renal calculi. Hepatic steatosis. Colonic diverticulosis without evidence for acute diverticulitis U/S interpreted by me (1pt. min.). @ -None done What testing was considered but not performed or refused? (CT, X-rays, U/S, labs)? Why? @ -None What meds were considered but not given or refused? Why? @ -None Did you discuss the management of the patient with other professionals (professionals i.e. , [facility], MAIL DISTRIBUTION SCHEME EXAMINER, lab, RT, psych nurse, social worker school, molten iron pourer, teacher, chief financial officer, case management associate)? Give summary @ -No Was smoking cessation discussed for >3mins.? @ -No Was critical care preformed (if so, how long)? @ -No Were there social determinants of health that impacted care today? How? (Homelessness, low income, unemployed, alcoholism, drug addiction, transportation, low edu. Level, literacy, decrease access to med. care, penitentiary, rehab)? @ -No Was there de-escalation of care discussed even if they declined (Discuss DNR or withdrawal of care, Hospice)? DNR status @ -No What co-morbidities impacted this encounter? (DM, HTN, Smoking, COPD, CAD, Cancer, CVA, ARF, Chemo, Hep., AIDS, mental health diagnosis, sleep apnea, morbid obesity)? @ -None Was patient admitted / discharged? Hospital course, mention meds given and route, prescriptions, significant lab abnormalities, going to OR and other pertinent info. @ -54-year-old female presenting with chief complaint of UTI-like symptoms. White count 14.7. Urine shows evidence of infection with large leukocytes and small blood and many bacteria. Negative for influenza, RSV, COVID. Initial glucose 428, this was while the patient was in triage, when she was later brought back to a hallway bed glucose was rechecked and it was 372, she is being given IV fluids. Patient will be treated with ceftriaxone and then started on Keflex 500 4 times daily x 14 days. She is educated on today's findings and treatment plan. Follow-up with PCP. Report back to ER with any new or w orsening symptoms. Discussed return parameters and answered all questions. Patient conveyed verbal understanding and agreed to the plan. I discussed this case in detail with my attending Dr. Patiño Undiagnosed new problem with uncertain prognosis? @ -No Drug Therapy requiring intensive monitoring for toxicity (Heparin, Nitro, Insulin, Cardizem)? @ -No Were any procedures done? @ -No Diagnosis/symptom? @ -UTI Acute, or Chronic, or Acute on Chronic? @ -Acute Uncomplicated (without systemic symptoms) or Complicated (systemic symptoms)? @ -Complicated Side effects of treatment? @ -No Exacerbation, Progression, or Severe Exacerbation? @ -No Poses a threat to life or bodily function? How? (Chest pain, [place], [place], pneumonia, PE, COPD, DKA, ARF, appy, cholecystitis, CVA, Diverticulitis, Homicidal, Suicidal, threat to staff... and all critical care pts) @ -Unlikely at this time, however there is potential with any infection if not properly treated (Garland Garcia) - Lab Data Lab Results 04/09/25 04/09/25 04/09/25 Range/Units 14:17 14:17 14:17 WBC 14.70 H (4.50-10.00) 10*3/uL RBC 4.57 (4.10-5.20) 10*6/uL Hgb 13.9 (12.0-15.0) g/dL Hct 40.2 (37.2-46.3) % MCV 88.0 (80.0-97.0) fL MCH 30.4 (27.0-32.0) pg MCHC 34.6 (32.0-37.0) g/dL Plt Count 345 (140-440) 10*3/uL MPV 9.9 (9.5-12.2) fL Immature Gran % (Auto) 1.6 % Neutrophils % 77.7 % Lymphocytes % 13.3 % Monocytes % 5.9 % Eosinophils % 0.5 % Basophils % 1.0 % Immature Gran # 0.24 H (0.00-0.04) 10*3/uL Neutrophils # 11.43 H (1.80-7.70) 10*3/uL Lymphocytes # 1.95 (0.90-5.00) 10*3/uL Monocytes # 0.87 (0.20-1.00) 10*3/uL Eosinophils # 0.07 (0.04-0.35) 10*3/uL Basophils # 0.14 H (0.00-0.10) 10*3/uL Sodium 129 L (137-145) mmol/L Potassium 4.5 (3.5-5.1) mmol/L Chloride 92 L (98-107) mmol/L Carbon Dioxide 27 (22-30) mmol/L Anion Gap 10 mmol/L BUN 20 H (7-17) mg/dL Creatinine 1.04 (0.52-1.04) mg/dL Est GFR (CKD-EPI)AfAm 70 (>60 ml/min/1.73 sqM) Est GFR (CKD-EPI)NonAf 61 (>60 ml/min/1.73 sqM) Glucose 428 H (74-99) mg/dL POC Glucose (mg/dL) (70-110) mg/dL POC Glu Office Secretary ID Plasma Lactic Acid Nathan 2.0 (0.7-2.0) mmol/L Calcium 8.9 (8.4-10.2) mg/dL Total Bilirubin 1.0 (0.2-1.3) mg/dL AST 19 (14-36) U/L ALT 26 (4-34) U/L Alkaline Phosphatase 86 (38-126) U/L Total Protein 7.4 (6.3-8.2) g/dL Albumin 3.9 (3.5-5.0) g/dL Urine Color Urine Appearance (Clear) Urine pH (5.0-8.0) Ur Specific Gordon (1.001-1.035) Urine Protein (Negative) Urine Glucose (UA) (Negative) Urine Ketones (Negative) Urine Blood (Negative) Urine Nitrite (Negative) Urine Bilirubin (Negative) Urine Urobilinogen (<2.0) mg/dL Ur Leukocyte Esterase (Negative) Urine RBC (0-5) /hpf Urine WBC (0-5) /hpf Urine WBC Clumps (None) /hpf Ur Squamous Epith Cells (0-4) /hpf Urine Bacteria (None) /hpf Hyaline Casts (0-2) /lpf Urine Mucus (None) /hpf Urine Yeast (Budding) (None) /hpf Influenza Type A (PCR) (Not Detectd) Influenza Type B (PCR) (Not Detectd) RSV (PCR) (Not Detectd) SARS-CoV-2 (PCR) (Not Detectd) 04/09/25 04/09/25 04/09/25 Range/Units 14:17 16:34 18:23 WBC (4.50-10.00) 10*3/uL RBC (4.10-5.20) 10*6/uL Hgb (12.0-15.0) g/dL Hct (37.2-46.3) % MCV (80.0-97.0) fL MCH (27.0-32.0) pg MCHC (32.0-37.0) g/dL Plt Count (140-440) 10*3/uL MPV (9.5-12.2) fL Immature Gran % (Auto) % Neutrophils % % Lymphocytes % % Monocytes % % Eosinophils % % Basophils % % Immature Gran # (0.00-0.04) 10*3/uL Neutrophils # (1.80-7.70) 10*3/uL Lymphocytes # (0.90-5.00) 10*3/uL Monocytes # (0.20-1.00) 10*3/uL Eosinophils # (0.04-0.35) 10*3/uL Basophils # (0.00-0.10) 10*3/uL Sodium (137-145) mmol/L Potassium (3.5-5.1) mmol/L Chloride (98-107) mmol/L Carbon Dioxide (22-30) mmol/L Anion Gap mmol/L BUN (7-17) mg/dL Creatinine (0.52-1.04) mg/dL Est GFR (CKD-EPI)AfAm (>60 ml/min/1.73 sqM) Est GFR (CKD-EPI)NonAf (>60 ml/min/1.73 sqM) Glucose (74-99) mg/dL POC Glucose (mg/dL) 372 H (70-110) mg/dL POC Glu Office Secretary ID Belval Angelita Plasma Lactic Acid Nathan (0.7-2.0) mmol/L Calcium (8.4-10.2) mg/dL Total Bilirubin (0.2-1.3) mg/dL AST (14-36) U/L ALT (4-34) U/L Alkaline Phosphatase (38-126) U/L Total Protein (6.3-8.2) g/dL Albumin (3.5-5.0) g/dL Urine Color Yellow Urine Appearance Cloudy H (Clear) Urine pH 5.5 (5.0-8.0) Ur Specific Gordon 1.021 (1.001-1.035) Urine Protein Trace H (Negative) Urine Glucose (UA) 4+ H (Negative) Urine Ketones Trace H (Negative) Urine Blood Small H (Negative) Urine Nitrite Negative (Negative) Urine Bilirubin Negative (Negative) Urine Urobilinogen 2.0 (<2.0) mg/dL Ur Leukocyte Esterase Large H (Negative) Urine RBC 4 (0-5) /hpf Urine WBC 101 H (0-5) /hpf Urine WBC Clumps Moderate H (None) /hpf Ur Squamous Epith Cells 4 (0-4) /hpf Urine Bacteria Many H (None) /hpf Hyaline Casts 4 H (0-2) /lpf Urine Mucus Rare H (None) /hpf Urine Yeast (Budding) Occasional H (None) /hpf Influenza Type A (PCR) Not Detected (Not Detectd) Influenza Type B (PCR) Not Detected (Not Detectd) RSV (PCR) Not Detected (Not Detectd) SARS-CoV-2 (PCR) Not Detected (Not Detectd) Disposition <Binta Gregorio - Last Filed: 04/09/25 13:39> Is patient prescribed a controlled substance at d/c from ED?: No Time of Disposition: 19:21 <Garland Garcia - Last Filed: 04/15/25 18:26> Clinical Impression: Urinary tract infection Disposition: HOME SELF-CARE Condition: Good Instructions (If sedation given, give patient instructions): Urinary Tract Infection in Women (ED) Additional Instructions: Follow up with PCP. Report back to ER with any new or worsening symptoms. Take medication as prescribed. Prescriptions: Cephalexin [Keflex] 500 mg PO Q6HR 14 Days #56 cap Ondansetron Odt [Zofran Odt] 4 mg PO Q8HR PRN #20 tab PRN Reason: Nausea Referrals: Augustine Ballesteros MD [Primary Care Provider] - 1-2 days
[2025-04-09 14:27] LABS: Basophils # (A) 0.14 10*3/uL (0.00-0.10); Eosinophils # (A) 0.07 10*3/uL (0.04-0.35); Eosinophils % (A) 0.5 %; HCT 40.2 % (37.2-46.3); HGB 13.9 g/dL (12.0-15.0); Lymphocytes # (A) 1.95 10*3/uL (0.90-5.00); Lymphocytes % (A) 13.3 %; MCH 30.4 pg (27.0-32.0); MCHC 34.6 g/dL (32.0-37.0); Mean Platelet Volume 9.9 fL (9.5-12.2); Monocytes # (A) 0.87 10*3/uL (0.20-1.00); Monocytes % (A) 5.9 %; Neutrophils # (A) 11.43 10*3/uL (1.80-7.70); Neutrophils % (A) 77.7 %; Platelet Count 345 10*3/uL (140-440); RBC 4.57 10*6/uL (4.10-5.20)
[2025-04-09 14:47] LABS: ALT 26 U/L (4-34); AST 19 U/L (14-36); African American GFR (CKD) 70 (>60 ml/min/1.73 sqM); Albumin 3.9 g/dL (3.5-5.0); Alkaline Phosphatase 86 U/L (38-126); Anion Gap 10 mmol/L; Blood Urea Nitrogen 20 mg/dL (7-17); Calcium 8.9 mg/dL (8.4-10.2); Carbon Dioxide 27 mmol/L (22-30); Chloride 92 mmol/L (98-107); Glucose 428 mg/dL (74-99); Non-African American GFR(CKD) 61 (>60 ml/min/1.73 sqM); Potassium 4.5 mmol/L (3.5-5.1); Sodium 129 mmol/L (137-145); Total Protein 7.4 g/dL (6.3-8.2)
[2025-04-09 15:03] LABS: Influenza A Not Detected (Not Detectd); Influenza B Not Detected (Not Detectd); RSV Not Detected (Not Detectd)
--- NOTE | 2025-04-09 15:37 | CT ---
EXAMINATION TYPE: CT abdomen pelvis wo con CT DLP: 1819.3 mGycm, Automated exposure control for dose reduction was used. DATE OF EXAM: 04/09/2025 3:24 PM COMPARISON: CT abdomen pelvis 11/12/2023, 11/02/2023 CLINICAL INDICATION:Female, 54 years old with history of right flank pain, hx kidney stones; rt flank pain TECHNIQUE: Standard CT of the abdomen and pelvis without IV or oral contrast. Lack of IV or oral co ntrast limits evaluation of solid and hollow organ viscera. Coronal and sagittal reformats were perfo rmed. FINDINGS: LOWER CHEST: The visualized lungs are clear. Mild cardiomegaly. ABDOMEN LIVER: Diffusely hypoattenuating parenchyma. Enlarged measuring 22.7 cm in CC dimension. GALLBLADDER AND BILE DUCTS: The gallbladder is surgically absent. No biliary ductal dilatation. PANCREAS: Unremarkable noncontrast appearance. SPLEEN: Unremarkable noncontrast appearance. ADRENAL GLANDS: Unremarkable noncontrast appearance.. KIDNEYS AND URETERS: No evidence of hydronephrosis. No definitive left renal calculi. There are 2 non obstructing right renal calculi with largest measurement of 3 mm. Similar nonspecific bilateral perin ephric fat stranding. No definitive ureteral calculus identified. PELVIS BLADDER: Underdistended which limits evaluation. REPRODUCTIVE: The uterus is surgically absent. ABDOMEN & PELVIS STOMACH AND BOWEL: Postsurgical changes from gastric sleeve.Tiny scattered distal colonic diverticula without evidence for acute diverticulitis. No focal bowel wall thickening or surrounding inflammator y changes. The appendix is within normal limits. No evidence of bowel obstruction. PERITONEUM: No evidence of pneumoperitoneum or free fluid. VASCULATURE: No evidence of aortic aneurysm. Pelvic phleboliths are demonstrated. MUSCULOSKELETAL: No acute osseous abnormalities. LYMPH NODES: No gross evidence for lymphadenopathy. SOFT TISSUE/ABDOMINAL WALL: Small to moderate-sized fat filled umbilical hernia redemonstrated. IMPRESSION: 1. No evidence for obstructive uropathy. 2. Nonobstructing right renal calculi. 3. Hepatic steatosis. 4. Colonic diverticulosis without evidence for acute diverticulitis. [facility], , 04/09/2025 3:34 PM
--- NOTE | 2025-04-09 16:40 | XR ---
EXAMINATION TYPE: XR chest 2V DATE OF EXAM: 04/09/2025 4:37 PM COMPARISON: Chest radiographs from 08/21/2023 TECHNIQUE: XR chest 2V Frontal and lateral views of the chest. CLINICAL INDICATION:Female, 54 years old with history of shortness of breath; FINDINGS: Lungs/Pleura: There is no evidence of pleural effusion, focal consolidation, or pneumothorax. Pulmonary vascularity: Unremarkable. Heart/mediastinum: Cardiomediastinal silhouette is unremarkable. Musculoskeletal: No acute osseous pathology. IMPRESSION: No acute cardiopulmonary disease/process. [facility], , 04/09/2025 4:38 PM
[2025-04-09 16:48] LABS: Appearance,Urine Cloudy (Clear); Bacteria,Urine Many /hpf; Bilirubin,Urine Negative (Negative); Blood,Urine Small (Negative); Budding Yeast,Urine Occasional /hpf; Color,Urine Yellow; Glucose,Urine (UA) 4+ (Negative); Hyaline Casts,Urine 4 /lpf (0-2); Ketones,Urine Trace (Negative); Leukocyte Esterase,Urine Large (Negative); Mucus,Urine Rare /hpf; Nitrite,Urine Negative (Negative); PH, Urine 5.5 (5.0-8.0); Protein,Urine Trace (Negative); RBC,Urine 4 /hpf (0-5); Specific Gravity,Urine 1.021 (1.001-1.035); Squamous Epithelial Cell,Urine 4 /hpf (0-4); WBC,Urine 101 /hpf (0-5)
[2025-04-09 18:08] VITALS: RESP 18
[2025-04-09 18:25] LABS: Glucose,Whole Blood 372 mg/dL (70-110)
[2025-04-09] MEDS: ONDANSETRON 4 MG/2 ML VIAL IVP STA (18:34)
[2025-04-09] MEDS: KETOROLAC 15 MG/ML 1 ML VIAL IVP STA (18:34)
[2025-04-09] MEDS: SODIUM CHLORIDE 0.9% 1,000 ML IV ONE (18:37)
[2025-04-09] MEDS: INSULIN REGULAR 100 UNIT/ML VIAL (IV) IV ONE (18:46)
[2025-04-09 19:42] VITALS: BP 155/92; PULSE 102; TEMP 99.6
== END 2025-04-09 19:31 | disposition home or self-care (01) ==
LOC: EC 12:45
DX: N39.0 Urinary tract infection, site not specified (principal); Z91.041 Radiographic dye allergy status; Z88.7 Allergy status to serum and vaccine
CPT/HCPCS: 36415; 80053; 83605; 85025; 81001; 87086; 87077; 87186; 87636; 71046; 74176; 99285; 96365; 96375 ×2; 96361; J2405; J0696; J1885